=== PATIENT | female | born 1990 | race Caucasian/White ===

== ENCOUNTER → 2021-07-09 12:44 | Outpatient (CLI) | payer SELFPAY ==
--- NOTE | 2021-07-09 12:52 | US_ITS ---
FINAL REPORT CLINICAL HISTORY: ANATOMY SCAN-- seen by supervisor dock FINDINGS: There is a single live intrauterine gestation. Presentation is breech. The cervix is closed and measures 4.1 cm. Placenta is posterior, grade 1. Fetus is active with a heart rate of 142 beats per minute. Three-vessel cord with satisfactory umbilical cord insertion. Four-chamber heart is noted. brain and ventricles are unremarkable. Chest and diaphragm are unremarkable. ABDOMEN: Both kidneys are unremarkable. Stomach is unremarkable. SPINE: No anomalies identified. Both arms and legs noted. AMNIOTIC FLUID: Appropriate amount. MEASUREMENTS: ULTRASOUND AGE: 21 weeks 4 days. GESTATION AGE: 21 weeks 0 days. ESTIMATED WEIGHT: 427 g BPD: 5.11 cm corresponding with 21 weeks 4 days. OFD: 6.86 cm corresponding with 22 weeks 3 days. HC: 19 cm corresponding with 21 weeks 2 days. AC: 16.46 cm corresponding with 21 weeks 4 days. FL: 3.62 cm corresponding with 21 weeks 4 days. CEREBELLUM: 2.06 cm corresponding with 20 weeks 6 days. HUMERUS: 3.49 cm corresponding with 22 weeks 0 days. HC/AC: 1.15 CI: 74% FL/BPD: 71% FL/AC: 22% IMPRESSION: Single living IUP with an ultrasound age of 21 weeks 4 days. Reviewed, Interpreted and Dictated by Jitendra Singh III, MD Transcribed by Sveta Rubio Authenticated by Jitendra Singh III, MD on 07/09/2021 02:30:51 PM [facility]
== END ==
PROVIDERS: Referring Provider Midwife; Visit Provider Midwife
DX: Z34.92 Encounter for supervision of normal pregnancy, unspecified, second trimester (principal); Z36.0 Encounter for antenatal screening for chromosomal anomalies
CPT/HCPCS: 76811

== ENCOUNTER 2024-05-30 10:49 | Inpatient (IN) | payer BC, SELFPAY ==
[2024-05-30] VITALS (11 sets, daily range): BP systolic 98–121; BP diastolic 43–68; PULSE 90–118; RESP 16–20; TEMP 36.7–38.3; O2SAT 97–100; BMI 21.1
--- NOTE | 2024-05-30 10:57 | ED_ITS ---
Discharge Plan Disposition Chief Complaint: Fever Discharge ED Provider: Ryan Blanco General Adult HPI General Chief complaint: Fever Stated complaint: fever, cramping, 11 weeks Time Seen by Provider: 05/30/24 10:57 History of Present Illness HPI narrative: Patient presents for evaluation of fever, as well as reported clear vaginal discharge in the setting of approximately 11 weeks , last menstrual period early March. She states she is G6. No known sick contacts, associated symptoms include cramping, nausea, she has not had IUP confirmed at this time. No dysuria, no urinary frequency. Please note that above description of symptoms, in this electronic medical record under categorization of recalled from ER triage doctor by RN are reflective of an initial nursing assessment, however, is not reflective of my full history and physical exam that was personally taken and clarified. Consequentially, this preceding description of symptoms, which may include the patient's categorized chief complaint in the EMR, do not reflect my personal clinical impression, and the ultimate description of history of present illness and patient stated complaints should be deferred to this section of the note. Unless stated otherwise or congruent with this section of the note, additional signs, symptoms, or incongruence should be interpreted as inaccurate with my clinical impression. Related Data Allergies Allergy/AdvReac Type Severity Reaction Status Date / Time No Known Allergies Allergy Verified 05/30/24 11:43 [facility] Disclaimer: The information contained in this section may have been updated after the patient was seen, as this information can be updated by other users. Social History Smoking Status: Never smoker alcohol intake: former current occupational status: other Travel in the last 8 weeks: None ROS Obtained: Yes other As per HPI Physical Exam General General appearance: alert and in no apparent distress Head Head exam: atraumatic and normocephalic Eye Eye exam: Present normal appearance Neck Neck exam: Present normal inspection Chest Chest inspection: Present normal inspection and symmetric chest wall rise Respiratory Respiratory exam: Present normal lung sounds bilaterally; Absent respiratory distress Cardiovascular Cardiovascular exam: Present regular rate and normal rhythm Abdominal Exam Abdominal exam: Present soft Neurological Exam Neurological exam: Present alert and oriented X3 Psychiatric Psychiatric exam: Present normal affect and normal mood Skin Skin exam: Present warm and dry Other Other exam information: Supervised speculum exam with arielle pus at cervical os Medical Decision Making Medical Records Medical records reviewed: Yes I reviewed the patient's medical records. Screening: Per USPSTF and CDC recommendations, given the prevalence of disease in our region, it is our hospital?s policy to screen for HIV and viral Hepatitis for all patients aged 18 and over and those with ongoing risk factors. Guilherme Inquiry Pt receiving controlled substance: No Vital Signs: 05/30/24 11:35 05/30/24 12:02 05/30/24 14:03 Temperature 101 F H Temperature Source Oral Oral Pulse Rate 118 H Pulse Rate [Left] 118 H Respiratory Rate 18 Blood Pressure 120/63 Blood Pressure [Right Arm] 121/63 Blood Pressure Mean [Right Arm] 82 Blood Pressure Source [Right Arm] Automatic Cuff Blood Pressure Position [Right Arm] Sitting 02 Sat by Pulse Oximetry 100 98 Oxygen Delivery Method Room Air Room Air 05/30/24 14:30 05/30/24 14:49 Temperature Temperature Source Pulse Rate 110 H 112 H Pulse Rate [Left] Respiratory Rate Blood Pressure 119/64 121/68 Blood Pressure [Right Arm] Blood Pressure Mean [Right Arm] Blood Pressure Source [Right Arm] Blood Pressure Position [Right Arm] 02 Sat by Pulse Oximetry 97 98 Oxygen Delivery Method Room Air Room Air Lab Data Lab Results 05/30/24 11:38: SARS-CoV-2 (PCR) Not detected, Influenza A Untype (PCR) Not detected, Influenza Type B (PCR) Not detected 05/30/24 11:40: Urine Color Yellow, Urine Appearance Clear, Urine pH 6.5, Ur Specific [place] >= 1.030, Urine Protein 2+ A, Urine Glucose (UA) Negative, Urine Ketones 1+, Urine Blood 1+ A, Urine Nitrate Negative, Urine Bilirubin Negative, Urine Urobilinogen 0.2, Ur Leukocyte Esterase Negative, Urine RBC Occasional, Urine WBC Occasional, Ur Squamous Epith Cells Occasional, Urine Bacteria Trace 05/30/24 Unknown 05/30/24 Unknown Orders (Tests/Meds): ED MEDICATIONS Generic Name Dose Route Start Last Admin Trade Name Freq PRN Reason Stop Dose Admin Gentamicin Sulfate 300 mg/ 107.5 mls @ 100 mls/hr 05/30/24 15:30 Sodium Chloride IV 05/30/24 16:34 ONCE ONE Discontinued Medications Generic Name Dose Route Start Last Admin Trade Name Freq PRN Reason Stop Dose Admin Ampicillin Sodium 2 gm/ Sodium 100 mls @ 200 mls/hr 05/30/24 15:02 05/30/24 15:41 Chloride IV 05/30/24 15:31 200 mls/hr ONCE ONE Administration ORDERS Category Date Time Status POCUS Point of Care (ER Only) Stat Exams 05/30/24 11:57 Completed Beta HCG, Quant [HCG,Quantitative] Stat Lab 05/30/24 Completed CBC w/Auto Diff [Complete Blood Count Auto Diff] Stat Lab 05/30/24 Completed CMP [Comprehensive Metabolic Panel] Stat Lab 05/30/24 Completed Chlam/Gono/Trich/Myco, JUAN, Ur Stat Lab 05/30/24 11:40 Received Lipase Stat Lab 05/30/24 Completed RPR W/RFX Titers Stat Lab 05/30/24 Completed Rapid PCR Covid and Flu A/B Stat Lab 05/30/24 11:38 Completed Urinalysis and Microscopic Stat Lab 05/30/24 11:40 Completed Blood Culture Stat Micro 05/30/24 15:25 Received Genital Culture and Gram Stain Stat Micro 05/30/24 14:46 Received Urine Culture Stat Micro 05/30/24 11:06 Received US OB transvaginal Stat Ultrasound 05/30/24 12:05 Completed Medical Decision Narrative: Patient with history and exam per above presenting for evaluation of fever in the setting of Diagnoses considered include chorioamnionitis, ectopic , premature rupture of membranes, viral illness, among others ED workup and treatment included: ED MEDICATIONS Generic Name Dose Route Start Last Admin Trade Name Freq PRN Reason Stop Dose Admin Gentamicin Sulfate 300 mg/ 107.5 mls @ 100 mls/hr 05/30/24 15:30 Sodium Chloride IV 05/30/24 16:34 ONCE ONE Discontinued Medications Generic Name Dose Route Start Last Admin Trade Name Freq PRN Reason Stop Dose Admin Ampicillin Sodium 2 gm/ Sodium 100 mls @ 200 mls/hr 05/30/24 15:02 05/30/24 15:41 Chloride IV 05/30/24 15:31 200 mls/hr ONCE ONE Administration ORDERS Category Date Time Status POCUS Point of Care (ER Only) Stat Exams 05/30/24 11:57 Completed Beta HCG, Quant [HCG,Quantitative] Stat Lab 05/30/24 Completed CBC w/Auto Diff [Complete Blood Count Auto Diff] Stat Lab 05/30/24 Completed CMP [Comprehensive Metabolic Panel] Stat Lab 05/30/24 Completed Chlam/Gono/Trich/Myco, JUAN, Ur Stat Lab 05/30/24 11:40 Received Lipase Stat Lab 05/30/24 Completed RPR W/RFX Titers Stat Lab 05/30/24 Completed Rapid PCR Covid and Flu A/B Stat Lab 05/30/24 11:38 Completed Urinalysis and Microscopic Stat Lab 05/30/24 11:40 Completed Blood Culture Stat Micro 05/30/24 15:25 Received Genital Culture and Gram Stain Stat Micro 05/30/24 14:46 Received Urine Culture Stat Micro 05/30/24 11:06 Received US OB transvaginal Stat Ultrasound 05/30/24 12:05 Completed Labs were independently interpreted by me, significant for no leukocytosis, [id number] AmniSure negative for amniotic fluid Imaging was independently visualized and interpreted by me, significant for tachycardia, oligohydramnios Please refer to radiology report for full details. Clinical picture at this time concerning for chorioamnionitis, thus will initiate ampicillin and gentamicin, case was discussed with OB physician on-call who will admit patient to their service. Critical Care Critical Care Time Critical Care Time: No
--- NOTE | 2024-05-30 11:38 | PC.NURSE ---
swab sent to lab; pt ambulatory to restroom
--- NOTE | 2024-05-30 11:41 | PC.NURSE ---
UA sent to lab. Hooked back up to the monitor, no other needs at this time. Call quiroga within reach
[2024-05-30 11:44] LABS: Basophils % 0.1 % (0.1-2.0); Hematocrit 27.6 % (37.0-47.0); Lymphocytes # 0.2 K/mm3 (0.7-4.5); Lymphocytes % 2.9 % (10-50); Mean Corpuscular HGB Conc 32.6 g/dL (31.8-35.4); Mean Corpuscular Hemoglobin 23.6 pg (27.0-31.2); Mean Corpuscular Volume 72.3 fl (81-99); Mean Platelet Volume 10.9 fl (7.4-10.4); Monocytes # 0.2 K/mm3 (0.1-1.0); Monocytes % 2.7 % (1.7-9.3); Neutrophils # 7.8 K/mm3 (1.8-7.8); Neutrophils % 93.7 % (37.0-80.0); Platelet Count 180 K/mm3 (142-424); Red Blood Count 3.82 M/mm3 (4.20-5.40); Red Cell Distribution Width 20.2 % (11.5-17.5); White Blood Count 8.3 K/mm3 (4.8-10.8)
[2024-05-30 11:44] LABS: Coronavirus 19, PCR Not Detected (NotDetected); Influenza A, PCR Not Detected (NotDetected); Influenza B, PCR Not Detected (NotDetected)
[2024-05-30 11:44] LABS: Microscopic, Urine URINE MICROSCOPIC (MICROSCOPIC)
[2024-05-30 11:45] LABS: Appearance,Urine CLEAR (Clear); Bilirubin,Urine Negative (Negative); Blood, Urine 1+ (Negative); Color,Urine YELLOW (Yellow); Glucose,Urine (UA) Negative (Negative); Ketones,Urine 1+ (Negative); Leukocyte Esterase,Urine Negative (Negative); Nitrate,Urine Negative (Negative); PH,Urine 6.5 (5.0-8.5); Protein,Urine 2+ (Negative); Specific Gravity, Urine >= 1.030 (1.005-1.030); Urobilinogen,Urine 0.2 EU/dl (0.2)
[2024-05-30 11:49] LABS: Chloride 99 mmol/L (98-107); Sodium 133 mmol/L (136-145)
[2024-05-30 11:50] LABS: MANUAL DIFFERENTIAL MANUAL DIFFERENTIAL (MANUAL DIFF); Potassium 3.7 mmoL/L (3.5-5.1)
[2024-05-30 11:52] LABS: Alanine Aminotransferase 34 U/L (12-78); Albumin/Globulin Ratio 1.4 (1.1-1.8); Alkaline Phosphatase 70 U/L (38-126); Anion Gap 13.7 mEq/L (5-15); Aspartate Amino Transferase 41 U/L (14-36); Bilirubin,Total 0.3 mg/dl (0.2-1.3); Blood Urea Nitrogen 15 mg/dl (7-17); Carbon Dioxide 24 mmol/L (22.0-30.0); Creatinine Clearance Estimated 107 mL/min (50-200); Estimated Glomerular Filt Rate 115 ml/min (>60); GFR (African American) 139 ML/MIN (>60); Globulin 2.8 g/dL (1.3-3.2); Lipase 42 U/L (23-300); Total Protein,Serum 6.8 g/dl (6.3-8.2)
[2024-05-30 11:53] LABS: Calcium 9.1 mg/dl (8.4-10.2); Glucose 132 mg/dl (74-100)
[2024-05-30 11:56] LABS: Bacteria,Urine Trace /lpf; RBC,Urine Occasional #/hpf (0-3); Squamous Epithelial Cell,Urine Occasional #/hpf (0-5); WBC,Urine Occasional #/hpf (0-3)
--- NOTE | 2024-05-30 12:05 | US_ITS ---
PROCEDURE INFORMATION: Exam: US , Transvaginal Exam date and time: 05/30/2024 12:09 PM Age: 33 years old Clinical indication: Pain; Other: Cramping and bleeding; Gestational age or lmp: 11w5d; ; Additional info: Fever, , cramping LABS AND CLINICAL REPORTS: Gestational age (Established): 11 w 4 d Estimated due date (Established): 12/15/2024 TECHNIQUE: Imaging protocol: Real-time transvaginal obstetrical ultrasound of the maternal pelvis with image documentation. Transvaginal imaging was used for better evaluation of the fetus, adnexa, and/or cervix. COMPARISON: US OB /MATERNAL DETAIL 07/09/2021 1:02 PM FINDINGS: Gestation: There is a single live intrauterine gestation. heart rate: 183 bpm. Amniotic fluid (Qualitative): There is scant amniotic fluid noted. BIOMETRY: Gestational age (AUA): 11 w 5 d. Estimated due date (AUA): 12/14/2024. [place] rump length (CRL): 48.81 mm. EGA (CRL) is 11 w 4 d MATERNAL: Right ovary/adnexa: The right ovary is not identified transvaginally. Left ovary/adnexa: The left ovary measures 3.1 x 1.7 x 1.8 cm. Arterial waveforms are demonstrated within the left ovary at the time of the study on spectral pulse-wave duplex interrogation. Intraperitoneal space: There is no free pelvic fluid. IMPRESSION: Single live intrauterine gestation as described. Very low amniotic fluid. THIS REPORT CONTAINS FINDINGS THAT MAY BE CRITICAL TO PATIENT CARE. The findings were verbally communicated via telephone conference with Ryan Blanco at 1:04 PM EST on 05/30/2024. The findings were acknowledged and understood.
[2024-05-30 12:17] LABS: Hypochromasia 1+; Lymphocytes % 7 % (10-50); Monocytes % 1 % (2-9); Neutrophils % 92 % (42-76); Platelet Estimate Normal; Total Cells Counted 100
--- NOTE | 2024-05-30 12:21 | PC.NURSE ---
PT IS GONE TO ULTRASOUND
--- NOTE | 2024-05-30 12:40 | PC.NURSE ---
Pt returns to room from US, prelim verbally given to
--- NOTE | 2024-05-30 13:03 | PC.NURSE ---
Dr. Blanco is speaking with OB customer relationship specialist
[2024-05-30 13:17] LABS: HCG,Quantitative 93302 mIU/ml (0-5.42)
[2024-05-30 14:32] LABS: RPR W/RFX Titers Nonreactive (Nonreactive)
--- NOTE | 2024-05-30 15:28 | PC.NURSE ---
I notified HS of the need for a bed to admit to OB per
[2024-05-30] MEDS: AMPICILLIN SODIUM 2 GM in 0.9 % SODIUM CHLORIDE 100 ML IV ×2 (15:41→22:12)
[2024-05-30] MEDS: LACTATED RINGERS 760 ML IV ×2 (16:06→16:30)
[2024-05-30] MEDS: ACETAMINOPHEN 1,000MG/100ML VIAL 1000 MG IV (16:06)
[2024-05-30] MEDS: GENTAMICIN SULFATE 300 MG in 0.9 % SODIUM CHLORIDE 100 ML 100 MG IV (16:30)
--- NOTE | 2024-05-30 17:17 | P.HP_ITS ---
History of Present Illness *Admission Date: 05/30/24 *Reason for visit:: Fever, leakage of fluid in early *History of present illness: Mrs Halley Venegas is a 33 yo at 11w5d who presented to [facility] ED with complaint of fever/chills, leakage of fluid. She reports fevers started Monday evening. She admits she felt achey, fluish. Fevers continued yesterday and today. Yesterday her temperature reached 104 F. She reports watery vaginal discharge/leakage of fluid has kind of been her whole . Discharge/leakage is more with activity and less with rest. She has light intermittent bleeding which she reports has always been present for a while. She believes she has a fibroid uterus but is not confirmed. She denies pelvic cramping/pain. History of x 5, home births. Her care has been with a resident physician in radiology. She had a visit in January 2024 and a pap smear and cultures were performed. She states pap smear was negative. She denies past medical history. Prior pregnancies and deliveries were uncomplicated. While in the ED her temperature was 101 F. ED physician performed bedside ultrasound and noted scant amniotic fluid as well as tachycardia, 211 bpm. Amnisure was negative. Formal ultrasound was ordered which demonstrated SIUP at 11w4d, FHR 183 bpm, scant fluid. [facility] Disclaimer: The information contained in this section may have been updated after the patient was seen, as this information can be updated by other users. Medical History (Updated 05/30/24 @ 17:46 by Berta Ledezma DO) Lesion of cervix Vaginal discharge during in first trimester Oligohydramnios in first trimester Sepsis Social History (Updated 05/30/24 @ 15:46 by Ryan Blanco MD) Smoking Status: Never smoker alcohol intake: former current occupational status: other Travel in the last 8 weeks: None Have you lived/traveled outside [place] in past 30 days?: No Contact w/someone who lives/traveled outside US past 30 days?: No Exposure to someone with infectious disease in past 14 days?: No Do you have a fever (greater than 100.4 F or 38 C)?: Yes Have you tested positive for COVID-19: No Exposed to someone with COVID-19 in past 14 days?: No Do you have a sore throat?: No Do you have a cough?: No Do you have any weakness?: Yes Do you have any diarrhea?: No Are you experiencing any unusual bleeding?: No Do you have any muscle aches/pain?: No Do you have any abdominal pain?: No Are you experiencing loss of taste or smell?: No Review of Systems Review of Systems Review of systems:: pertinent systems reviewed and negative unless documented below Constitutional Constitutional: Reports body ache(s), Reports chills and Reports fever(s) Meds Home Medications and Allergies New Prescriptions to Start Prescriptions: Allergies Allergy/AdvReac Type Severity Reaction Status Date / Time No Known Allergies Allergy Verified 05/30/24 11:43 Exam Data for Last 24 hours Vital signs and Labs for Last 24 Hours: Temp Pulse Resp BP Pulse Ox O2 Del Method 100.8 F H 90 16 105/60 L 100 Room Air 05/30/24 16:09 05/30/24 17:05 05/30/24 17:05 05/30/24 17:05 05/30/24 17:05 05/30/24 17:05 Laboratory Results - last 24 hr 05/30/24 11:38: SARS-CoV-2 (PCR) Not detected, Influenza A Untype (PCR) Not detected, Influenza Type B (PCR) Not detected 05/30/24 11:40: Urine Color Yellow, Urine Appearance Clear, Urine pH 6.5, Ur Specific [place] >= 1.030, Urine Protein 2+ A, Urine Glucose (UA) Negative, Urine Ketones 1+, Urine Blood 1+ A, Urine Nitrate Negative, Urine Bilirubin Negative, Urine Urobilinogen 0.2, Ur Leukocyte Esterase Negative, Urine RBC Oc casional, Urine WBC Occasional, Ur Squamous Epith Cells Occasional, Urine Bacteria Trace 05/30/24 : WBC 8.3, RBC 3.82 L, Hgb 9.0 L, Hct 27.6 L, MCV 72.3 L, MCH 23.6 L, MCHC 32.6, RDW 20.2 H, Plt Count 180, MPV 10.9 H, Neut % (Auto) 93.7 H, Lymph % (Auto) 2.9 L, Stewart % (Auto) 2.7, Eos % (Auto) 0.0 L, Baso % (Auto) 0.1, Neut # (Auto) 7.8, Lymph # (Auto) 0.2 L, Stewart # (Auto) 0.2, Eos # (Auto) 0.0, Baso # (Auto) 0.0, Total Counted 100, Neutrophils % (Manual) 92 H, Lymphocytes % (Manual) 7 L, Monocytes % (Manual) 1 L, Platelet Estimate Normal, Hypochromasia 1+, Sodium 133 L, Potassium 3.7, Chloride 99, Carbon Dioxide 24, Anion Gap 13.7, BUN 15, Creatinine 0.60, Estimated Creat Clear 107, Estimated GFR 115, Est GFR ( Amer) 139, Glucose 132 H, Calcium 9.1, Total Bilirubin 0.3, AST 41 H, ALT 34, Alkaline Phosphatase 70, Total Protein 6.8, Albumin 4.0, Globulin 2.8, Albumin/Globulin Ratio 1.4, Lipase 42, HCG, Quant 82544 H, RPR w/Rflx to Titer Nonreactive I & O for Last 24 hours: Intake & Output 05/27/24 05/28/24 05/29/24 05/30/24 23:59 23:59 23:59 23:59 Weight 112 lb Microbiology Reports for the Last 24 Hours: Microbiology 05/30/24 14:46 Vaginal Gram Stain - Final 05/30/24 14:56 Vaginal Wet Prep - Final Constitutional Constitutional: cooperative Comments: + appears to not feel well *Routine HEENT Exam Head: Present normocephalic and atraumatic Eye: Absent conjunctivae pink ENT: Present mucous membranes moist *Routine Neck Exam Neck: Present full ROM *Routine Respiratory Exam Respiratory: Present CTA bilaterally and normal respiratory effort *Routine Cardiovascular Exam Cardiovascular: Present tachycardia *Routine Abdominal Exam Abdominal: Present soft (Gravid); Absent tenderness *Routine Rectal Exam Rectal:: deferred *Routine Genitalia Exam Genitalia:: other Comment:: Normal external appearance; Speculum exam + copious amount of hunt/brown/red fluid in the vaginal vault and obscurring part of the cervix. Attempted to remove fluid with swabs without much success. At 7 o'clock to 9 o'clock there appears to be a yellowish colored raised plaque on the cervix that did not move with swab. No cervical motion tenderness. No odor appreciated. *Routine Extremities Exam Extremities: Present full ROM; Absent edema or calf tenderness *Routine Neurological Exam Neurological: Present alert, moving all extremities and normal speech Routine Psychiatric Exam Psychiatric: Present normal affect and cooperative Assessment and Plan *Assessment and plan (1) Sepsis: Status: Acute Qualifiers: Sepsis acute organ dysfunction status: unspecified Sepsis type: sepsis due to unspecified organism Qualified Code(s): A41.9 - Sepsis, unspecified organism Category: Medical Code(s): A41.9 - Sepsis, unspecified organism (2) Oligohydramnios in first trimester: Status: Acute Qualifiers: Fetus number: single or unspecified fetus Qualified Code(s): O41.01X0 - Oligohydramnios, first trimester, not applicable or unspecified Category: Medical Code(s): O41.01X0 - Oligohydramnios, first trimester, not applicable or unspecified (3) Vaginal discharge during in first trimester: Status: Acute Category: Medical Code(s): O26.891 - Other specified related conditions, first trimester; N89.8 - Other specified noninflammatory disorders of vagina (4) Lesion of cervix: Status: Acute Category: Medical Code(s): N88.9 - Noninflammatory disorder of cervix uteri, unspecified Plan Admit to [facility] L&D Sepsis protocol - IV fluids per protocol, vitals per protocol Ampicillin 2 gm q 6 hours, Gentamicin 5 mg/kg daily FHT q shift Cultures pending Repeat labs in the AM Repeat ultrasound in the AM Close monitoring Regular diet Activity as tolerated Tylenol 1000 q 6 hours PRN fever/pain
[2024-05-30 17:22] LABS: Lactic Acid 1.5 mmol/L (0.7-2.1)
[2024-05-31] VITALS (39 sets, daily range): BP systolic 83–103; BP diastolic 35–76; PULSE 80–122; RESP 16–20; TEMP 36.7–39.4; O2SAT 96–100
--- NOTE | 2024-05-31 | US_ITS ---
Ultrasound Sonograher: PROCEDURE: US PELVIC CLINICAL INDICATION: RPOC COMPARISON: US US OB TRANSVAGINAL from 05/30/2024 US US OB TRANSVAGINAL from 05/31/2024 FINDINGS: Real time transabdominal sonographic images of the pelvis were obtained during a D&C. UTERUS: Anteverted. Suction evacuation of the entire uterine contents was performed under ultrasound guidance. The endometrial contents were completely evacuated. Ovaries were not evaluated. IMPRESSION: 1. Suction evacuation of the endometrial contents. 2. The uterus was completely evacuated. Dictated by: Louis Melgoza MD 05/31/2024 15:55 Louis Melgoza MD in OV 05/31/2024 15:55
[2024-05-31] MEDS: LACTATED RINGERS 1000ML 1,000 ML 75 ML IV (01:23)
[2024-05-31] MEDS: AMPICILLIN SODIUM 2 GM in 0.9 % SODIUM CHLORIDE 100 ML IV (03:39)
[2024-05-31] MEDS: ACETAMINOPHEN 500MG TAB 1000 MG PO ×2 (04:53→15:47)
[2024-05-31] MEDS: ONDANSETRON 4MG/2ML VIAL 4 MG IV ×2 (05:45→09:26)
[2024-05-31 06:00] LABS: Basophils % 0.5 % (0.1-2.0); Hematocrit 21.2 % (37.0-47.0); Lymphocytes # 0.2 K/mm3 (0.7-4.5); Mean Corpuscular HGB Conc 32.1 g/dL (31.8-35.4); Mean Corpuscular Hemoglobin 23.2 pg (27.0-31.2); Mean Corpuscular Volume 72.4 fl (81-99); Mean Platelet Volume 11.4 fl (7.4-10.4); Monocytes # 0.1 K/mm3 (0.1-1.0); Monocytes % 2.5 % (1.7-9.3); Neutrophils # 1.7 K/mm3 (1.8-7.8); Platelet Count 144 K/mm3 (142-424); Red Blood Count 2.93 M/mm3 (4.20-5.40)
[2024-05-31] MEDS: IBUPROFEN 400 MG TABLET PO (06:00)
[2024-05-31 06:11] LABS: Alanine Aminotransferase 26 U/L (12-78); Albumin Level 2.7 g/dl (3.5-5.0); Albumin/Globulin Ratio 1.1 (1.1-1.8); Alkaline Phosphatase 60 U/L (38-126); Anion Gap 10.3 mEq/L (5-15); Aspartate Amino Transferase 30 U/L (14-36); Blood Urea Nitrogen 11 mg/dl (7-17); Calcium 7.8 mg/dl (8.4-10.2); Carbon Dioxide 20 mmol/L (22.0-30.0); Chloride 107 mmol/L (98-107); Creatinine Clearance Estimated 128 mL/min (50-200); Estimated Glomerular Filt Rate 142 ml/min (>60); GFR (African American) 172 ML/MIN (>60); Globulin 2.4 g/dL (1.3-3.2); Glucose 102 mg/dl (74-100); Potassium 3.3 mmoL/L (3.5-5.1); Sodium 134 mmol/L (136-145); Total Protein,Serum 5.1 g/dl (6.3-8.2)
[2024-05-31 06:13] LABS: Hemoglobin 6.8 g/dL (12.2-16.2)
--- NOTE | 2024-05-31 06:13 | PC.NURSE ---
Ijeoma in lab notified me of critical hemoglobin level of 6.8.
[2024-05-31 06:16] LABS: Bilirubin,Total < 0.1 mg/dl (0.2-1.3)
--- NOTE | 2024-05-31 06:38 | PC.NURSE ---
Hospitalist on unit at this time, report given, orders for 1000ml bolus at this time, and start 100ml/hr after bolus, new lactate level stat. orders verified and read back
[2024-05-31] MEDS: LACTATED RINGERS 999 ML IV (06:45)
--- NOTE | 2024-05-31 07:00 | US_ITS ---
PROCEDURE: US OB TRANSVAGINAL CLINICAL INDICATION: Possible LOF COMPARISON: US US OB TRANSVAGINAL from 05/30/2024 FINDINGS: Transvaginal sonographic images of the pelvis were obtained. From her last menstrual period she is 11weeks 5days. There appears to be tissue left within the uterine cavity but no heart rate activity is seen today. The right ovary is seen and appears normal. The left ovary is seen and appears normal. There is no fluid in the cul-de-sac. IMPRESSION: 1. There is no heart rate activity today. It is difficult to determine whether there is a fetus or just residual tissue within the uterus. A fetus was not clearly identified. There is no amniotic sac present today. 2. Both ovaries are seen and appear normal. 3. No fluid in the cul-de-sac. Dictated by: Louis Melgoza MD 05/31/2024 10:03 Louis Melgoza MD in OV 05/31/2024 10:03
--- NOTE | 2024-05-31 07:23 | PC.NURSE ---
pt going to radiology for u/s at this time.
[2024-05-31 07:43] LABS: Adenovirus,PCR Not Detected (NotDetected); Bordetella Pertussis Not Detected (NotDetected); Chlamydophila Pneumoniae, PCR Not Detected (NotDetected); Coronavirus 19, PCR Not Detected (NotDetected); Coronavirus 229E Not Detected (NotDetected); Coronavirus NL63 Not Detected (NotDetected); Coronavirus OC43 Not Detected (NotDetected); Coronovirus HKU1,PCR Not Detected (NotDetected); Human Metapneumovirus Not Detected (NotDetected); Influenza A, PCR Not Detected (NotDetected); Influenza AH1, 2009 Not Detected (NotDetected); Influenza AH1, PCR Not Detected (NotDetected); Influenza AH3,PCR Not Detected (NotDetected); Influenza B, PCR Not Detected (NotDetected); Mycoplasma Pneumoniae, PCR Not Detected (NotDetected); Parainfluenza 1, PCR Not Detected (NotDetected); Parainfluenza 2, PCR Not Detected (NotDetected); Parainfluenza 3, PCR Not Detected (NotDetected); Parainfluenza 4, PCR Not Detected (NotDetected); Respiratory Syncytial Virus Not Detected (NotDetected); Rhinovirus/Enterovirus Not Detected (NotDetected)
--- NOTE | 2024-05-31 07:44 | PC.NURSE ---
pt returned fromn radiology at this time. call light w/i reach.
--- NOTE | 2024-05-31 08:11 | PC.NURSE ---
Dr. Steve to bedside to see patient.
--- NOTE | 2024-05-31 08:13 | P.CONPHA_ITS ---
Pharmacy Consult Date: 05/31/24 Time: 08:13 Referring provider: DR. LEDEZMA Reason for Consult:: GENTAMICIN Allergies Allergy/AdvReac Type Severity Reaction Status Date / Time No Known Allergies Allergy Verified 05/30/24 11:43 New Prescriptions to Start Prescriptions: Height: 1.55 m Weight: 50.802 kg Laboratory Results:: Laboratory Results - last 24 hr 05/30/24 11:38: SARS-CoV-2 (PCR) Not detected, Influenza A Untype (PCR) Not detected, Influenza Type B (PCR) Not detected 05/30/24 11:40: Urine Color Yellow, Urine Appearance Clear, Urine pH 6.5, Ur Specific [place] >= 1.030, Urine Protein 2+ A, Urine Glucose (UA) Negative, Urine Ketones 1+, Urine Blood 1+ A, Urine Nitrate Negative, Urine Bilirubin Negative, Urine Urobilinogen 0.2, Ur Leukocyte Esterase Negative, Urine RBC Occasional, Urine WBC Occasional, Ur Squamous Epith Cells Occasional, Urine Bacteria Trace 05/30/24 16:43: Lactate 1.5 05/30/24 : WBC 8.3, RBC 3.82 L, Hgb 9.0 L, Hct 27.6 L, MCV 72.3 L, MCH 23.6 L, MCHC 32.6, RDW 20.2 H, Plt Count 180, MPV 10.9 H, Neut % (Auto) 93.7 H, Lymph % (Auto) 2.9 L, [place] % (Auto) 2.7, Eos % (Auto) 0.0 L, Baso % (Auto) 0.1, Neut # (Auto) 7.8, Lymph # (Auto) 0.2 L, [place] # (Auto) 0.2, Eos # (Auto) 0.0, Baso # (Auto) 0.0, Total Counted 100, Neutrophils % (Manual) 92 H, Lymphocytes % (Manual) 7 L, Monocytes % (Manual) 1 L, Platelet Estimate Normal, Hypochromasia 1+, Sodium 133 L, Potassium 3.7, Chloride 99, Carbon Dioxide 24, Anion Gap 13.7, BUN 15, Creatinine 0.60, Estimated Creat Clear 107, Estimated GFR 115, Est GFR ( Amer) 139, Glucose 132 H, Calcium 9.1, Total Bilirubin 0.3, AST 41 H, ALT 34, Alkaline Phosphatase 70, Total Protein 6.8, Albumin 4.0, Globulin 2.8, Albumin/Globulin Ratio 1.4, Lipase 42, HCG, Quant [id number] H, RPR w/Rflx to Titer Nonreactive 05/31/24 05:46: WBC 2.0 L D, RBC 2.93 L, Hgb 6.8 L* D, Hct 21.2 L, MCV 72.4 L, MCH 23.2 L, MCHC 32.1, RDW 20.0 H, Plt Count 144, MPV 11.4 H, Neut % (Auto) 83.0 H, Lymph % (Auto) 12.0, [place] % (Auto) 2.5, Eos % (Auto) 1.0, Baso % (Auto) 0.5, Neut # (Auto) 1.7 L, Lymph # (Auto) 0.2 L, [place] # (Auto) 0.1, Eos # (Auto) 0.0, Baso # (Auto) 0.0, Sodium 134 L, Potassium 3.3 L, Chloride 107, Carbon Dioxide 20 L, Anion Gap 10.3, BUN 11 D, Creatinine 0.50 L, Estimated Creat Clear 128, Estimated GFR 142, Est GFR ( Amer) 172 D, Glucose 102 H D, Calcium 7.8 L , Total Bilirubin < 0.1 L, AST 30 D, ALT 26, Alkaline Phosphatase 60, Total Protein 5.1 L, Albumin 2.7 L D, Globulin 2.4, Albumin/Globulin Ratio 1.1 05/31/24 06:40: Blood Type A Positive, Antibody Screen Negative, Crossmatch (AHG) See Detail Medical History: Medical History (Updated 05/30/24 @ 17:46 by Berta Ledezma DO) Lesion of cervix Vaginal discharge during in first trimester Oligohydramnios in first trimester Sepsis Assessment and Plan Assessment and plan all Dx Assessment and Plan for all problems:: Pharmacokinetic dosing service Objective: Patient: Floor: Age: 33 yo Serum creatinine: 0.5 mg/dL Height: 61.0 Inches Weight (kg): 50.8 Assessment: IBW (kg): 47.80 Dosing wt(kg): 47.8 Estimated Creatinine clearance (ml/min): 120.8 CRCL method: Cockcroft and Gault using ibw(default). Drug selected: Gentamicin Loading dose (mg): 0 Vd (liters): 14.3 (factor used: 0.3 L/kg) Humphrey (hr-1): 0.507 Half life (hrs): 1.37 Recommended dose: 240 mg Interval: 24 hrs Infusion time (hrs): 1 Predicted peak (mcg/mL): 13.2 Predicted trough (mcg/mL): 0.00 Recommendations: Give Gentamicin 240 mg q 24 hrs with an expected Cpeak of 13.2 mcg/ml and an expected Ctrough of 0.00 mcg/ml. PATIENT RECEIVED GENTAMICIN 300 MG X1 DOSE AT 1630 05/30/24 IN ER.
[2024-05-31] MEDS: LACTATED RINGERS 1000ML 1,000 ML 100 ML IV ×2 (08:53→11:31)
[2024-05-31] MEDS: DOXYCYCLINE HYCL 100 MG TABLET 200 MG PO (09:06)
--- NOTE | 2024-05-31 09:14 | PC.NURSE ---
Dr. Bal and Dr. Ledezma to bedside to see patient.
--- NOTE | 2024-05-31 09:17 | EXP.MED.CON ---
History of Present Illness *Admission Date: 05/30/24 *Reason for visit:: Fever, vaginal discharge *History of present illness: Mrs Halley Venegas is a 33 yo at 11w5d who presented to [facility] ED with complaint of fever/chills, leakage of fluid. She reports fevers started Monday evening. She admits she felt achey, fluish. Fevers continued yesterday and today. Yesterday her temperature reached 104 F. She reports watery vaginal discharge/leakage of fluid has kind of been her whole . Discharge/leakage is more with activity and less with rest. She has light intermittent bleeding which she reports has always been present for a while. She believes she has a fibroid uterus but is not confirmed. She denies pelvic cramping/pain. History of x 5, home births. 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 She had a visit in January 2024 and a pap smear and cultures were performed. She states pap smear was negative. She denies past medical history. Prior pregnancies and deliveries were uncomplicated. While in the ED her temperature was 101 F. ED physician performed bedside ultrasound and noted scant amniotic fluid as well as tachycardia, 211 bpm. Amnisure was negative. Formal ultrasound was ordered which demonstrated SIUP at 11w4d, FHR 183 bpm, scant fluid. [facility] Disclaimer: The information contained in this section may have been updated after the patient was seen, as this information can be updated by other users. Medical History (Updated 05/31/24 @ 09:17 by Murtaza Bal MD) Lesion of cervix Vaginal discharge during in first trimester Oligohydramnios in first trimester Sepsis Social History (Updated 05/30/24 @ 18:48 by Melvin Solomon RN) Smoking Status: Never smoker alcohol intake: former current occupational status: unemployed Travel in the last 8 weeks: None Have you lived/traveled outside US in past 30 days?: No Contact w/someone who lives/traveled outside US past 30 days?: No Exposure to someone with infectious disease in past 14 days?: No Do you have a fever (greater than 100.4 F or 38 C)?: No Have you tested positive for COVID-19: No Exposed to someone with COVID-19 in past 14 days?: No Do you have a sore throat?: No Do you have a cough?: No Do you have any weakness?: Yes Do you have any diarrhea?: No Are you experiencing any unusual bleeding?: No Do you have any muscle aches/pain?: No Do you have any abdominal pain?: No Are you experiencing loss of taste or smell?: No Exam Data for Last 24 hours Vital signs and Labs for Last 24 Hours: Temp Pulse Resp BP Pulse Ox O2 Del Method 98.9 F 112 H 16 95/54 L 100 Room Air 05/31/24 08:43 05/31/24 09:00 05/31/24 09:00 05/31/24 09:00 05/31/24 09:00 05/31/24 07:26 Laboratory Results - last 24 hr 05/30/24 11:38: SARS-CoV-2 (PCR) Not detected, Influenza A Untype (PCR) Not detected, Influenza Type B (PCR) Not detected 05/30/24 11:40: Urine Color Yellow, Urine Appearance Clear, Urine pH 6.5, Ur Specific [place] >= 1.030, Urine Protein 2+ A, Urine Glucose (UA) Negative, Urine Ketones 1+, Urine Blood 1+ A, Urine Nitrate Negative, Urine Bilirubin Negative, Urine Urobilinogen 0.2, Ur Leukocyte Esterase Negative, Urine RBC Occasional, Urine WBC Occasional, Ur Squamous Epith Cells Occasional, Urine Bacteria Trace 05/30/24 16:43: Lactate 1.5 05/30/24 : WBC 8.3, RBC 3.82 L, Hgb 9.0 L, Hct 27.6 L, MCV 72.3 L, MCH 23.6 L, MCHC 32.6, RDW 20.2 H, Plt Count 180, MPV 10.9 H, Neut % (Auto) 93.7 H, Lymph % (Auto) 2.9 L, [place] % (Auto) 2.7, Eos % (Auto) 0.0 L, Baso % (Auto) 0.1, Neut # (Auto) 7.8, Lymph # (Auto) 0.2 L, [place] # (Auto) 0.2, Eos # (Auto) 0.0, Baso # (Auto) 0.0, Total Counted 100, Neutrophils % (Manual) 92 H, Lymphocytes % (Manual) 7 L, Monocytes % (Manual) 1 L, Platelet Estimate Normal, Hypochromasia 1+, Sodium 133 L, Potassium 3.7, Chloride 99, Carbon Dioxide 24, Anion Gap 13.7, BUN 15, Creatinine 0.60, Estimated Creat Clear 107, Estimated GFR 115, Est GFR ( Amer) 139, Glucose 132 H, Calcium 9.1, Total Bilirubin 0.3, AST 41 H, ALT 34, Alkaline Phosphatase 70, Total Protein 6.8, Albumin 4.0, Globulin 2.8, Albumin/Globulin Ratio 1.4, Lipase 42, HCG, Quant [id number] H, RPR w/Rflx to Titer Nonreactive 05/31/24 05:46: WBC 2.0 L D, RBC 2.93 L, Hgb 6.8 L* D, Hct 21.2 L, MCV 72.4 L, MCH 23.2 L, MCHC 32.1, RDW 20.0 H, Plt Count 144, MPV 11.4 H, Neut % (Auto) 83.0 H, Lymph % (Auto) 12.0, [place] % (Auto) 2.5, Eos % (Auto) 1.0, Baso % (Auto) 0.5, Neut # (Auto) 1.7 L, Lymph # (Auto) 0.2 L, [place] # (Auto) 0.1, Eos # (Auto) 0.0, Baso # (Auto) 0.0, Sodium 134 L, Potassium 3.3 L, Chloride 107, Carbon Dioxide 20 L, Anion Gap 10.3, BUN 11 D, Creatinine 0.50 L, Estimated Creat Clear 128, Estimated GFR 142, Est GFR ( Amer) 172 D, Glucose 102 H D, Calcium 7.8 L, Total Bilirubin < 0.1 L, AST 30 D, ALT 26, Alkaline Phosphatase 60, Total Protein 5.1 L, Albumin 2.7 L D, Globulin 2.4, Albumin/Globulin Ratio 1.1, Blood Type Confirm A Positive 05/31/24 06:40: Blood Type A Positive, Antibody Screen Negative, Crossmatch (AHG) See Detail I & O for Last 24 hours: Intake & Output 05/28/24 05/29/24 05/30/24 05/31/24 23:59 23:59 23:59 23:59 Intake Total 0 / 0 Output Total 850 / 850 350 / 350 Balance -850 / -850 -350 / -350 Weight 50.802 kg 50.802 kg Microbiology Reports for the Last 24 Hours: Microbiology 05/30/24 14:46 Vaginal Gram Stain - Final 05/30/24 14:56 Vaginal Wet Prep - Final Meds Home Medications and Allergies New Prescriptions to Start Prescriptions: Allergies Allergy/AdvReac Type Severity Reaction Status Date / Time No Known Allergies Allergy Verified 05/30/24 11:43 Results Labs 05/31/24 05:46 05/31/24 05:46 Labs: Abnormal lab results 05/30/24 05/30/24 05/31/24 Range/Units 11:40 Unknown 05:46 WBC 2.0 L D (4.8-10.8) K/mm3 RBC 3.82 L 2.93 L (4.20-5.40) M/mm3 Hgb 9.0 L 6.8 L* D (12.2-16.2) g/dL Hct 27.6 L 21.2 L (37.0-47.0) % MCV 72.3 L 72.4 L (81-99) fl MCH 23.6 L 23.2 L (27.0-31.2) pg RDW 20.2 H 20.0 H (11.5-17.5) % MPV 10.9 H 11.4 H (7.4-10.4) fl Neut % (Auto) 93.7 H 83.0 H (37.0-80.0) % Lymph % (Auto) 2.9 L (10-50) % Eos % (Auto) 0.0 L (0.1-12.0) % Neut # (Auto) 1.7 L (1.8-7.8) K/mm3 Lymph # (Auto) 0.2 L 0.2 L (0.7-4.5) K/mm3 Neutrophils % (Manual) 92 H (42-76) % Lymphocytes % (Manual) 7 L (10-50) % Monocytes % (Manual) 1 L (2-9) % Sodium 133 L 134 L (136-145) mmol/L Potassium 3.3 L (3.5-5.1) mmoL/L Carbon Dioxide 20 L (22.0-30.0) mmol/L Creatinine 0.50 L (0.52-1.04) mg/dl Glucose 132 H 102 H D (74-100) mg/dl Calcium 7.8 L (8.4-10.2) mg/dl Total Bilirubin < 0.1 L (0.2-1.3) mg/dl AST 41 H (14-36) U/L Total Protein 5.1 L (6.3-8.2) g/dl Albumin 2.7 L D (3.5-5.0) g/dl HCG, Quant [id number] H (0-5.42) mIU/ml Urine Protein 2+ A (Negative) Urine Blood 1+ A (Negative) Crossmatch ([facility]) 05/31/24 Range/Units 06:40 WBC (4.8-10.8) K/mm3 RBC (4.20-5.40) M/mm3 Hgb (12.2-16.2) g/dL Hct (37.0-47.0) % MCV (81-99) fl MCH (27.0-31.2) pg RDW (11.5-17.5) % MPV (7.4-10.4) fl Neut % (Auto) (37.0-80.0) % Lymph % (Auto) (10-50) % Eos % (Auto) (0.1-12.0) % Neut # (Auto) (1.8-7.8) K/mm3 Lymph # (Auto) (0.7-4.5) K/mm3 Neutrophils % (Manual) (42-76) % Lymphocytes % (Manual) (10-50) % Monocytes % (Manual) (2-9) % Sodium (136-145) mmol/L Potassium (3.5-5.1) mmoL/L Carbon Dioxide (22.0-30.0) mmol/L Creatinine (0.52-1.04) mg/dl Glucose (74-100) mg/dl Calcium (8.4-10.2) mg/dl Total Bilirubin (0.2-1.3) mg/dl AST (14-36) U/L Total Protein (6.3-8.2) g/dl Albumin (3.5-5.0) g/dl HCG, Quant (0-5.42) mIU/ml Urine Protein (Negative) Urine Blood (Negative) Crossmatch ([facility]) See Detail H & H 05/30/24 05/31/24 Range/Units Unknown 05:46 Hgb 9.0 L 6.8 L* D (12.2-16.2) g/dL Hct 27.6 L 21.2 L (37.0-47.0) % All other labs normal. Assessment and Plan *Assessment and plan (1) Sepsis: Status: Acute Qualifiers: Sepsis type: sepsis due to unspecified organism Sepsis acute organ dysfunction status: unspecified Qualified Code(s): A41.9 - Sepsis, unspecified organism Category: Medical Code(s): A41.9 - Sepsis, unspecified organism (2) Vaginal discharge during in first trimester: Status: Acute Category: Medical Code(s): O26.891 - Other specified related conditions, first trimester; N89.8 - Other specified noninflammatory disorders of vagina (3) Blood loss anemia: Status: Acute Category: Medical Code(s): D50.0 - Iron deficiency anemia secondary to blood loss (chronic) Plan Meeting sepsis criteria with white count of 2, tachycardia with heart rate of 110, hypotensive, suspected infection intrauterine or vaginal. Broaden antibiotics to vancomycin and Zosyn as ultrasound shows no longer viable. Blood, vaginal, urine cultures pending. Respiratory swab broadened to full respiratory panel. Still pending at this time. Acute blood loss anemia: Agree with transfusion, receiving 2 units today. Transfusion threshold hemoglobin less than 7. Gynecology planning on taking patient for D&C today
--- NOTE | 2024-05-31 09:18 | EXP.MED.CON ---
History of Present Illness *Admission Date: 05/30/24 *Reason for visit:: fever, chills *History of present illness: Mrs Halley Venegas is a 33 yo at 11w5d who presented to [facility] ED with complaint of fever/chills, leakage of fluid. She reports fevers started Monday evening. She admits she felt achey, fluish. Fevers continued yesterday and today. Yesterday her temperature reached 104 F. She reports watery vaginal discharge/leakage of fluid has kind of been her whole . Discharge/leakage is more with activity and less with rest. She has light intermittent bleeding which she reports has always been present for a while. She believes she has a fibroid uterus but is not confirmed. She denies pelvic cramping/pain. History of x 5, home births. 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 She had a visit in January 2024 and a pap smear and cultures were performed. She states pap smear was negative. She denies past medical history. Prior pregnancies and deliveries were uncomplicated. While in the ED her temperature was 101 F. ED physician performed bedside ultrasound and noted scant amniotic fluid as well as tachycardia, 211 bpm. Amnisure was negative. Formal ultrasound was ordered which demonstrated SIUP at 11w4d, FHR 183 bpm, scant fluid. Medicine was consulted to assist with assessment and treatment of sepsis. Patient has received bolus. Will complete sepsis bolus with an additional liter. Worsening anemia this morning, receiving transfusion. [facility] Disclaimer: The information contained in this section may have been updated after the patient was seen, as this information can be updated by other users. Medical History Lesion of cervix Vaginal discharge during in first trimester Oligohydramnios in first trimester Sepsis Social History Smoking Status: Never smoker alcohol intake: former substance use type: denies use current occupational status: unemployed Travel in the last 8 weeks: None Review of Systems Review of Systems Review of systems (narrative): 14 point review of systems performed, pertinent positives and negatives as per HPI Exam Data for Last 24 hours Vital signs and Labs for Last 24 Hours: Temp Pulse Resp BP Pulse Ox O2 Del Method 98.9 F 112 H 16 95/54 L 100 Room Air 05/31/24 08:43 05/31/24 09:00 05/31/24 09:00 05/31/24 09:00 05/31/24 09:00 05/31/24 07:26 Laboratory Results - last 24 hr 05/30/24 11:38: SARS-CoV-2 (PCR) Not detected, Influenza A Untype (PCR) Not detected, Influenza Type B (PCR) Not detected 05/30/24 11:40: Urine Color Yellow, Urine Appearance Clear, Urine pH 6.5, Ur Specific [place] >= 1.030, Urine Protein 2+ A, Urine Glucose (UA) Negative, Urine Ketones 1+, Urine Blood 1+ A, Urine Nitrate Negative, Urine Bilirubin Negative, Urine Urobilinogen 0.2, Ur Leukocyte Esterase Negative, Urine RBC Occasional, Urine WBC Occasional, Ur Squamous Epith Cells Occasional, Urine Bacteria Trace 05/30/24 16:43: Lactate 1.5 05/30/24 : WBC 8.3, RBC 3.82 L, Hgb 9.0 L, Hct 27.6 L, MCV 72.3 L, MCH 23.6 L, MCHC 32.6, RDW 20.2 H, Plt Count 180, MPV 10.9 H, Neut % (Auto) 93.7 H, Lymph % (Auto) 2.9 L, [place] % (Auto) 2.7, Eos % (Auto) 0.0 L, Baso % (Auto) 0.1, Neut # (Auto) 7.8, Lymph # (Auto) 0.2 L, [place] # (Auto) 0.2, Eos # (Auto) 0.0, Baso # (Auto) 0.0, Total Counted 100, Neutrophils % (Manual) 92 H, Lymphocytes % (Manual) 7 L, Monocytes % (Manual) 1 L, Platelet Estimate Normal, Hypochromasia 1+, Sodium 133 L, Potassium 3.7, Chloride 99, Carbon Dioxide 24, Anion Gap 13.7, BUN 15, Creatinine 0.60, Estimated Creat Clear 107, Estimated GFR 115, Est GFR ( Amer) 139, Glucose 132 H, Calcium 9.1, Total Bilirubin 0.3, AST 41 H, ALT 34, Alkaline Phosphatase 70, Total Protein 6.8, Albumin 4.0, Globulin 2.8, Albumin/Globulin Ratio 1.4, Lipase 42, HCG, Quant 56204 H, RPR w/Rflx to Titer Nonreactive 05/31/24 05:46: WBC 2.0 L D, RBC 2.93 L, Hgb 6.8 L* D, Hct 21.2 L, MCV 72.4 L, MCH 23.2 L, MCHC 32.1, RDW 20.0 H, Plt Count 144, MPV 11.4 H, Neut % (Auto) 83.0 H, Lymph % (Auto) 12.0, [place] % (Auto) 2.5, Eos % (Auto) 1.0, Baso % (Auto) 0.5, Neut # (Auto) 1.7 L, Lymph # (Auto) 0.2 L, [place] # (Auto) 0.1, Eos # (Auto) 0.0, Baso # (Auto) 0.0, Sodium 134 L, Potassium 3.3 L, Chloride 107, Carbon Dioxide 20 L, Anion Gap 10.3, BUN 11 D, Creatinine 0.50 L, Estimated Creat Clear 128, Estimated GFR 142, Est GFR ( Amer) 172 D, Glucose 102 H D, Calcium 7.8 L, Total Bilirubin < 0.1 L, AST 30 D, ALT 26, Alkaline Phosphatase 60, Total Protein 5.1 L, Albumin 2.7 L D, Globulin 2.4, Albumin/Globulin Ratio 1.1, Blood Type Confirm A Positive 05/31/24 06:40: Blood Type A Positive, Antibody Screen Negative, Crossmatch (AHG) See Detail I & O for Last 24 hours: Intake & Output 05/28/24 05/29/24 05/30/24 05/31/24 23:59 23:59 23:59 23:59 Intake Total 0 / 0 Output Total 850 / 850 350 / 350 Balance -850 / -850 -350 / -350 Weight 50.802 kg 50.802 kg Microbiology Reports for the Last 24 Hours: Microbiology 05/30/24 14:46 Vaginal Gram Stain - Final 05/30/24 14:56 Vaginal Wet Prep - Final Constitutional Constitutional: mild distress, average body habitus and cooperative *Routine HEENT Exam Head: Present normocephalic Eye: Present EOMI and PERRL ENT: Present mucous membranes moist *Routine Neck Exam Neck: Present supple; Absent lymphadenopathy *Routine Respiratory Exam Respiratory: Present CTA bilaterally; Absent rhonchi, wheezes or crackles *Routine Cardiovascular Exam Cardiovascular: Present tachycardia *Routine Abdominal Exam Abdominal: Present soft, normoactive bowel sounds and tenderness (Mild, lower abdomen) *Routine Rectal Exam Patient deferred: visual exam *Routine Exam Patient deferred: external exam *Routine Extremities Exam Extremities: Absent cyanosis, clubbing or edema *Routine Skin Exam Skin: Present intact, pallor and warm; Absent rash *Routine Neurological Exam Neurological: Present alert, oriented X3 and moving all extremities; Absent altered mental status Meds Home Medications and Allergies Home Medications ?Medication ?Instructions ?Recorded ?Confirmed ?Type No Known Home Medications 05/31/24 05/31/24 History New Prescriptions to Start Prescriptions: Allergies Allergy/AdvReac Type Severity Reaction Status Date / Time No Known Allergies Allergy Verified 05/30/24 11:43 Results Labs 05/31/24 13:00 05/31/24 05:46 Labs: Abnormal lab results 05/30/24 05/30/24 05/31/24 Range/Units 11:40 Unknown 05:46 WBC 2.0 L D (4.8-10.8) K/mm3 RBC 3.82 L 2.93 L (4.20-5.40) M/mm3 Hgb 9.0 L 6.8 L* D (12.2-16.2) g/dL Hct 27.6 L 21.2 L (37.0-47.0) % MCV 72.3 L 72.4 L (81-99) fl MCH 23.6 L 23.2 L (27.0-31.2) pg RDW 20.2 H 20.0 H (11.5-17.5) % MPV 10.9 H 11.4 H (7.4-10.4) fl Neut % (Auto) 93.7 H 83.0 H (37.0-80.0) % Lymph % (Auto) 2.9 L (10-50) % Eos % (Auto) 0.0 L (0.1-12.0) % Neut # (Auto) 1.7 L (1.8-7.8) K/mm3 Lymph # (Auto) 0.2 L 0.2 L (0.7-4.5) K/mm3 Neutrophils % (Manual) 92 H (42-76) % Lymphocytes % (Manual) 7 L (10-50) % Monocytes % (Manual) 1 L (2-9) % Sodium 133 L 134 L (136-145) mmol/L Potassium 3.3 L (3.5-5.1) mmoL/L Carbon Dioxide 20 L (22.0-30.0) mmol/L Creatinine 0.50 L (0.52-1.04) mg/dl Glucose 132 H 102 H D (74-100) mg/dl Calcium 7.8 L (8.4-10.2) mg/dl Total Bilirubin < 0.1 L (0.2-1.3) mg/dl AST 41 H (14-36) U/L Total Protein 5.1 L (6.3-8.2) g/dl Albumin 2.7 L D (3.5-5.0) g/dl HCG, Quant 23619 H (0-5.42) mIU/ml Urine Protein 2+ A (Negative) Urine Blood 1+ A (Negative) Crossmatch (AHG) 05/31/24 Range/Units 06:40 WBC (4.8-10.8) K/mm3 RBC (4.20-5.40) M/mm3 Hgb (12.2-16.2) g/dL Hct (37.0-47.0) % MCV (81-99) fl MCH (27.0-31.2) pg RDW (11.5-17.5) % MPV (7.4-10.4) fl Neut % (Auto) (37.0-80.0) % Lymph % (Auto) (10-50) % Eos % (Auto) (0.1-12.0) % Neut # (Auto) (1.8-7.8) K/mm3 Lymph # (Auto) (0.7-4.5) K/mm3 Neutrophils % (Manual) (42-76) % Lymphocytes % (Manual) (10-50) % Monocytes % (Manual) (2-9) % Sodium (136-145) mmol/L Potassium (3.5-5.1) mmoL/L Carbon Dioxide (22.0-30.0) mmol/L Creatinine (0.52-1.04) mg/dl Glucose (74-100) mg/dl Calcium (8.4-10.2) mg/dl Total Bilirubin (0.2-1.3) mg/dl AST (14-36) U/L Total Protein (6.3-8.2) g/dl Albumin (3.5-5.0) g/dl HCG, Quant (0-5.42) mIU/ml Urine Protein (Negative) Urine Blood (Negative) Crossmatch ([facility]G) See Detail H & H 05/30/24 05/31/24 Range/Units Unknown 05:46 Hgb 9.0 L 6.8 L* D (12.2-16.2) g/dL Hct 27.6 L 21.2 L (37.0-47.0) % All other labs normal. Assessment and Plan *Assessment and plan (1) Sepsis: Status: Acute Qualifiers: Sepsis acute organ dysfunction status: unspecified Sepsis type: sepsis due to unspecified organism Qualified Code(s): A41.9 - Sepsis, unspecified organism Category: Medical Code(s): A41.9 - Sepsis, unspecified organism (2) Spontaneous : Status: Acute Category: Medical Code(s): O03.9 - Complete or unspecified spontaneous without complication (3) Vaginal discharge during in first trimester: Status: Acute Category: Medical Code(s): O26.891 - Other specified related conditions, first trimester; N89.8 - Other specified noninflammatory disorders of vagina (4) Blood loss anemia: Status: Acute Category: Medical Code(s): D50.0 - Iron deficiency anemia secondary to blood loss (chronic) Plan 33-year-old female G6, P5 who presented with symptoms of sepsis. This morning, white count of 2, tachycardia with heart rate of 110, hypotensive. Initiated on IV fluids. Concern for endometritis/chorioamnionitis. Discussed case with product engineering manager, request evaluation to assist with sepsis. Repeat ultrasound obtained this morning shows no viable . Patient appears to have had spontaneous . Blood culture, vaginal culture, urine culture obtained. Recommended broadening antibiotics to vancomycin and Zosyn -Gynecology planning for D&C today. Per my review of transvaginal ultrasound, no viable fetus in the uterus. -Blood culture returned positive for B. fragilis. Awaiting sensitivity -Blood pressure holding stable at this time with fluid resuscitation. No indication for pressors at this time -Recommend Tylenol for fever. Acute blood loss anemia: Agree with transfusion, receiving 2 units today. Transfusion threshold hemoglobin less than 7. Kidney function this morning normal with BUN 11, creatinine 0.5. Repeat CBC, CMP, magnesium ordered for this morning. Thank you for the opportunity to consult on this patient. Will continue to follow along while she is admitted.
[2024-05-31] MEDS: PIPERCILLIN/TAZO 3.375 GM in 0.9 % SODIUM CHLORIDE 50 ML IV ×3 (09:27→21:50)
[2024-05-31] MEDS: LACTOBACILLUS PROBIOTIC COMB CAPSULE 1 CAP PO (09:27)
--- NOTE | 2024-05-31 09:32 | P.CONPHA_ITS ---
Pharmacy Consult Date: 05/31/24 Time: 09:32 Referring provider: JULY Reason for Consult:: VANCOMYCIN INITIATION AND MANAGEMENT Allergies Allergy/AdvReac Type Severity Reaction Status Date / Time No Known Allergies Allergy Verified 05/30/24 11:43 New Prescriptions to Start Prescriptions: Height: 1.55 m Weight: 50.802 kg Laboratory Results:: Laboratory Results - last 24 hr 05/30/24 11:38: SARS-CoV-2 (PCR) Not detected, Influenza A Untype (PCR) Not detected, Influenza Type B (PCR) Not detected 05/30/24 11:40: Urine Color Yellow, Urine Appearance Clear, Urine pH 6.5, Ur Specific [place] >= 1.030, Urine Protein 2+ A, Urine Glucose (UA) Negative, Urine Ketones 1+, Urine Blood 1+ A, Urine Nitrate Negative, Urine Bilirubin Negative, Urine Urobilinogen 0.2, Ur Leukocyte Esterase Negative, Urine RBC Occasional, Urine WBC Occasional, Ur Squamous Epith Cells Occasional, Urine Bacteria Trace 05/30/24 16:43: Lactate 1.5 05/30/24 : WBC 8.3, RBC 3.82 L, Hgb 9.0 L, Hct 27.6 L, MCV 72.3 L, MCH 23.6 L, MCHC 32.6, RDW 20.2 H, Plt Count 180, MPV 10.9 H, Neut % (Auto) 93.7 H, Lymph % (Auto) 2.9 L, [place] % (Auto) 2.7, Eos % (Auto) 0.0 L, Baso % (Auto) 0.1, Neut # (Auto) 7.8, Lymph # (Auto) 0.2 L, [place] # (Auto) 0.2, Eos # (Auto) 0.0, Baso # (Auto) 0.0, Total Counted 100, Neutrophils % (Manual) 92 H, Lymphocytes % (Manual) 7 L, Monocytes % (Manual) 1 L, Platelet Estimate Normal, Hypochromasia 1+, Sodium 133 L, Potassium 3.7, Chloride 99, Carbon Dioxide 24, Anion Gap 13.7, BUN 15, Creatinine 0.60, Estimated Creat Clear 107, Estimated GFR 115, Est GFR ( Amer) 139, Glucose 132 H, Calcium 9.1, Total Bilirubin 0.3, AST 41 H, ALT 34, Alkaline Phosphatase 70, Total Protein 6.8, Albumin 4.0, Globulin 2.8, Albumin/Globulin Ratio 1.4, Lipase 42, HCG, Quant 81894 H, RPR w/Rflx to Titer Nonreactive 05/31/24 05:46: WBC 2.0 L D, RBC 2.93 L, Hgb 6.8 L* D, Hct 21.2 L, MCV 72.4 L, MCH 23.2 L, MCHC 32.1, RDW 20.0 H, Plt Count 144, MPV 11.4 H, Neut % (Auto) 83.0 H, Lymph % (Auto) 12.0, [place] % (Auto) 2.5, Eos % (Auto) 1.0, Baso % (Auto) 0.5, Neut # (Auto) 1.7 L, Lymph # (Auto) 0.2 L, [place] # (Auto) 0.1, Eos # (Auto) 0.0, Baso # (Auto) 0.0, Sodium 134 L, Potassium 3.3 L, Chloride 107, Carbon Dioxide 20 L, Anion Gap 10.3, BUN 11 D, Creatinine 0.50 L, Estimated Creat Clear 128, Estimated GFR 142, Est GFR ( Amer) 172 D, Glucose 102 H D, Calcium 7.8 L , Total Bilirubin < 0.1 L, AST 30 D, ALT 26, Alkaline Phosphatase 60, Total Protein 5.1 L, Albumin 2.7 L D, Globulin 2.4, Albumin/Globulin Ratio 1.1, Blood Type Confirm A Positive 05/31/24 06:40: Blood Type A Positive, Antibody Screen Negative, Crossmatch (AHG) See Detail Medical History: Medical History (Updated 05/31/24 @ 09:17 by Murtaza Bal MD) Lesion of cervix Vaginal discharge during in first trimester Oligohydramnios in first trimester Sepsis Assessment and Plan Assessment and plan all Dx Assessment and Plan for all problems:: PT ADMITTED WITH SUSPECTED SEPSIS. PT RECV'D AMPICILLIN AND GENTAMICIN OVER NIGHT. REQUESTED CHANGE TO ZOSYN TO START THIS AM AND VANCOMYCIN. WILL START 1000MG Q8H THIS AM AND MONITOR DAILY UNTIL VANCOMYCIN DISCONTINUED. THANK YOU.
--- NOTE | 2024-05-31 09:45 | PC.NURSE ---
pt to OR at this time.
--- NOTE | 2024-05-31 09:53 | P.PNANES_ITS ---
[facility] Disclaimer: The information contained in this section may have been updated after the patient was seen, as this information can be updated by other users. Medical History (Updated 05/31/24 @ 09:17 by Murtaza Bal MD) Lesion of cervix Vaginal discharge during in first trimester Oligohydramnios in first trimester Sepsis Social History (Updated 05/30/24 @ 18:48 by Melvin Solomon RN) Smoking Status: Never smoker alcohol intake: former substance use type: denies use current occupational status: unemployed Travel in the last 8 weeks: None [facility] Anesthesia Checklist Patient Identification Patient Identification: Arm Band and Family Structural Data Admitted From: Inpatient Planned Operative Procedure/s: D and C Consent for Planned Operative Procedure(s) Verified: Yes Verified Documents: Surgical Consent and History and Physical NPO Status Verified Time NPO: 00:00 Additional verifications Patient : Yes Anesthesia Reactions: No Hx Blood Transfusions: Yes Blood Transfusion Reaction: No Cephalosporin Allergy: No Previous Colonoscopy: No Airway Assessment Mallampati Score:: Class II C-Spine Mobility Assessed: Yes TMJ Mobility Assessed: Yes Dentition: Good Dentition Neurological Assessment Level of Consciousness: Awake, Alert, Appropriate and Follows Commands Hx Seizures: No Numbness or tingling in extremities: No Anesthesia Plan ASA Class: III Anesthesia Type: General Preoperative Comments Pre-Operative Comments: Severely anemic.
--- NOTE | 2024-05-31 10:06 | P.PN_ITS ---
Subjective *Date: 05/31/24 *Time: 10:06 Interval history: Halley is a 33yo who is HD#2 and being managed for a working diagnosis of septic . This morningthe patient reports hse has a headache, and feels fatigued. She enodreses pasing a large blood clot early this morning. She had fevers overnight Exam Data for Last 24 hours Vital signs and Labs for Last 24 Hours: Temp Pulse Resp BP Pulse Ox O2 Del Method 98.7 F 104 H 16 84/49 L 99 Room Air 05/31/24 09:45 05/31/24 09:45 05/31/24 09:45 05/31/24 09:45 05/31/24 09:45 05/31/24 07:26 Laboratory Results - last 24 hr 05/30/24 11:38: SARS-CoV-2 (PCR) Not detected, Influenza A Untype (PCR) Not detected, Influenza Type B (PCR) Not detected 05/30/24 11:40: Urine Color Yellow, Urine Appearance Clear, Urine pH 6.5, Ur Specific [place] >= 1.030, Urine Protein 2+ A, Urine Glucose (UA) Negative, Urine Ketones 1+, Urine Blood 1+ A, Urine Nitrate Negative, Urine Bilirubin Negative, Urine Urobilinogen 0.2, Ur Leukocyte Esterase Negative, Urine RBC Occasional, Urine WBC Occasional, Ur Squamous Epith Cells Occasional, Urine Bacteria Trace 05/30/24 16:43: Lactate 1.5 05/30/24 : WBC 8.3, RBC 3.82 L, Hgb 9.0 L, Hct 27.6 L, MCV 72.3 L, MCH 23.6 L, MCHC 32.6, RDW 20.2 H, Plt Count 180, MPV 10.9 H, Neut % (Auto) 93.7 H, Lymph % (Auto) 2.9 L, [place] % (Auto) 2.7, Eos % (Auto) 0.0 L, Baso % (Auto) 0.1, Neut # (Auto) 7.8, Lymph # (Auto) 0.2 L, [place] # (Auto) 0.2, Eos # (Auto) 0.0, Baso # (Auto) 0.0, Total Counted 100, Neutrophils % (Manual) 92 H, Lymphocytes % (Manual) 7 L, Monocytes % (Manual) 1 L, Platelet Estimate Normal, Hypochromasia 1+, Sodium 133 L, Potassium 3.7, Chloride 99, Carbon Dioxide 24, Anion Gap 13.7, BUN 15, Creatinine 0.60, Estimated Creat Clear 107, Estimated GFR 115, Est GFR ( Amer) 139, Glucose 132 H, Calcium 9.1, Total Bilirubin 0.3, AST 41 H, ALT 34, Alkaline Phosphatase 70, Total Protein 6.8, Albumin 4.0, Globulin 2.8, Albumin/Globulin Ratio 1.4, Lipase 42, HCG, Quant 79828 H, RPR w/Rflx to Titer Nonreactive 05/31/24 05:46: WBC 2.0 L D, RBC 2.93 L, Hgb 6.8 L* D, Hct 21.2 L, MCV 72.4 L, MCH 23.2 L, MCHC 32.1, RDW 20.0 H, Plt Count 144, MPV 11.4 H, Neut % (Auto) 83.0 H, Lymph % (Auto) 12.0, [place] % (Auto) 2.5, Eos % (Auto) 1.0, Baso % (Auto) 0.5, Neut # (Auto) 1.7 L, Lymph # (Auto) 0.2 L, [place] # (Auto) 0.1, Eos # (Auto) 0.0, Baso # (Auto) 0.0, Sodium 134 L, Potassium 3.3 L, Chloride 107, Carbon Dioxide 20 L, Anion Gap 10.3, BUN 11 D, Creatinine 0.50 L, Estimated Creat Clear 128, Estimated GFR 142, Est GFR ( Amer) 172 D, Glucose 102 H D, Calcium 7.8 L , Total Bilirubin < 0.1 L, AST 30 D, ALT 26, Alkaline Phosphatase 60, Total Protein 5.1 L, Albumin 2.7 L D, Globulin 2.4, Albumin/Globulin Ratio 1.1, Blood Type Confirm A Positive 05/31/24 06:40: Blood Type A Positive, Antibody Screen Negative, Crossmatch (AHG) See Detail I & O for Last 24 hours: Intake & Output 05/28/24 05/29/24 05/30/24 05/31/24 23:59 23:59 23:59 23:59 Intake Total 0 / 0 Output Total 850 / 850 350 / 350 Balance -850 / -850 -350 / -350 Weight 112 lb 112 lb Microbiology Reports for the Last 24 Hours: Microbiology 05/30/24 14:46 Vaginal Gram Stain - Final 05/30/24 14:56 Vaginal Wet Prep - Final Constitutional Constitutional: mild distress and thin Comments: Very pale on exam this morning *Routine HEENT Exam Head: Present normocephalic Eye: Present EOMI and PERRL ENT: Present mucous membranes dry *Routine Neck Exam Neck: Present supple and full ROM; Absent lymphadenopathy *Routine Respiratory Exam Respiratory: Present CTA bilaterally, normal respiratory effort, able to speak in complete sentences and symmetric chest movement; Absent accessory muscle use or diminished air movement *Routine Cardiovascular Exam Cardiovascular: Present tachycardia (with hypotension) *Routine Abdominal Exam Abdominal: Present soft, normoactive bowel sounds and tenderness; Absent rebound or guarding *Routine Extremities Exam Extremities: Present pallor; Absent cyanosis, clubbing or edema *Routine Skin Exam Skin: Present intact, dry and pallor; Absent rash *Routine Neurological Exam Neurological: Present alert, oriented X3, moving all extremities and normal speech Routine Psychiatric Exam Psychiatric: Present normal affect, normal thought process, cooperative, good insight and good judgment Assessment and Plan *Assessment and plan (1) Blood loss anemia: Status: Acute Category: Medical Code(s): D50.0 - Iron deficiency anemia secondary to blood loss (chronic) (2) Lesion of cervix: Status: Acute Category: Medical Code(s): N88.9 - Noninflammatory disorder of cervix uteri, unspecified (3) Sepsis: Status: Acute Qualifiers: Sepsis type: sepsis due to unspecified organism Sepsis acute organ dysfunction status: unspecified Qualified Code(s): A41.9 - Sepsis, unspecified organism Category: Medical Code(s): A41.9 - Sepsis, unspecified organism (4) Spontaneous : Status: Acute Category: Medical Code(s): O03.9 - Complete or unspecified spontaneous without complication Plan #Septic -Transvaginal ultrasound reviewed this morning. I personally reviewed and interpreted the images and reviewed them with the patient. Official read is still pending. Discussed that she likely passed the fetus overnight. Discussed medical and surgical management and recommended surgical management given the likely diagnosis of septic . Patient consented. -Discussed the risk of infection, doxycycline given. Discussed the risk of uterine perforation and we will do this under ultrasound guidance. -Given the broad antibiotic coverage recommended starting a probiotic -vaginal cultures collected in the ED continue follow-up to results -This patient is at an increased risk for VTE as well as atelectasis pneumonia. Recommend SCDs at all times while in bed as well as an incentive spirometer #Cervical lesion -Consented the patient for a biopsy in the OR D&C #Acute blood loss anemia -Discussed blood transfusion with the patient. Reviewed the risks and benefits in detail and the patient consented to blood transfusion, 2 units were ordered -Will follow her vitals and CBC closely #Sepsis -Medicine consulted and following their recommendations -Transition into coverage to Vanco and Zosyn, per hospital guidelines -Respiratory panel pending -Blood cultures pending This patient is critical condition with guarded prognosis. She requires a multidisciplinary team approach. She requires high medical decision making. She has several comorbidities.
--- NOTE | 2024-05-31 11:07 | EXP.ANES.I ---
[facility] [place] Anesthesia Record Part I Anesthesia Record I Intake, IV Amount: 950 Hydration: Adequate Estimated blood loss (mL): 1,200 Urine output (mL): 0 Blood Products used (#): none and FFP Blood Pressure: 103/56 SaO2: 97 Pulse Rate: 122 Airway Patency: Patent Respiratory Rate: 20 Temperature: 98.2 F Patient is:: Drowsy and Stable Stable to PACU at:: 11:02
[2024-05-31] MEDS: KETOROLAC 30MG/ML VIAL 30 MG IV (11:21)
[2024-05-31] MEDS: MORPHINE 2MG/ML SYRINGE 2 MG IV (11:27)
[2024-05-31] MEDS: VANCOMYCIN CONSULT REQUEST 1 EACH NOTAPPLIC (11:37)
[2024-05-31] MEDS: KETOROLAC 30MG/ML VIAL 30 MG (11:38)
[2024-05-31] MEDS: METHYLERGONOVINE MALEATE 0.2MG/ML INJ 0.2 MG IM (11:38)
--- NOTE | 2024-05-31 11:40 | PC.NURSE ---
report received from PACU.
[2024-05-31] MEDS: SODIUM CHLORIDE 0.9% IV (11:48)
[2024-05-31] MEDS: TRANEXAMIC ACID IV (11:48)
--- NOTE | 2024-05-31 11:50 | PC.NURSE ---
pt returned to room from surgery at this time. post op vitals being obtained. at bedside. pt alert and oriented. lung sounds cta, abdomen soft, bowel sounds active. no blood noted to chux pad at this time. scuds in place. call light w/i reach. pt states pain has improved from 5 to 3. warm blankets in place.
--- NOTE | 2024-05-31 11:55 | SUR.OPER ---
1018- Agnieszka Bingham RN brought this RN second unit of blood. 1020- Ist unit of blood stopped by Jennifer Torre CRNA, confirmed by this RN 1023- Sindi Green CRNA and this RN verified all labels on unit of blood to patient sticker. Everything correct. 1024- Sindi Green CRNA started second unit of blood. Unit number for second bag is [id number]. 1030- Verbal orders by Dr Steve for TXA, Cytotec, Hemabate, and methyrgine. VO repeated and correct. Medications pulled and given to Jennifer Torre CRNA. system administration manager documented by AGRICULTURAL ECONOMICS TEACHER. 1044- Second unit of blood completed and stoped by Sindi Green CRNA. 1102- Patient to PACU, report given to Delon LEGGETT.
--- NOTE | 2024-05-31 12:00 | PC.NURSE ---
Dr. Steve called at this time to check on patient, stated she would come over to bedside to see patient.
[2024-05-31] MEDS: VANCOMYCIN HCL 1,000 MG in 0.9 % SODIUM CHLORIDE 250 ML 125 MG IV ×2 (12:01→18:36)
--- NOTE | 2024-05-31 12:19 | EXP.OP.NOTE ---
Date of procedure: 05/31/24 Pre-op Diagnosis:: 1. 11 weeks spontaneous 2. Desires surgical management 3. Sepsis 4. Acute hemorrhagic anemia 5. Rh+ Post-op Diagnosis:: 1. 11 weeks spontaneous 2. Desires surgical management 3. Sepsis 4. Acute hemorrhagic anemia 5. Rh+ Procedure performed:: Dilation and suction curettage Surgeon:: Nadege Steve DO SYSTEM SAFETY ENGINEER:: Bienvenido Green and Murtaza Torre Anesthesia: GETA Estimated blood loss (mL): 1,200 Clinical Note:: Complications: None UOP: 200mL Operative findings:: Dilated cervical os with a yellowish appearing plaque noted to be protruding from the os. Grasped with a ring and noted to extend to the lower uterine segment. Gently removed. Copious bright red blood in the vaginal vault. Operative note:: Halley Venegas is a 33-year-old who presented to the emergency room and was noted to meet sepsis protocol. The patient has been febrile overnight with a Tmax of 103. On presentation there were is cardiac activity, although tachycardia and oligohydramnios was noted. Repeat ultrasound this morning displayed no visible embryo and no detectable cardiac activity. Secondary to concerns for septic decision was made to proceed with surgical management. Overnight the patient experienced a significant hemoglobin drop and on exam this morning she was very pale with dry mucous membranes and decreased capillary refill. The patient also complained of a headache and lethargy. She was consented and received 2 units of packed red blood cells. She was consented for suction D&C. Risk, benefits, and alternatives were reviewed. Risk including but not limited to uterine perforation, bleeding, and infection were discussed. On exam there was noted to be a yellowish plaque near the cervix. This was discussed with the patient and she consented to a biopsy if deemed medically necessary during her procedure. Patient reports that she recently had a Pap smear with [facility] [address] [place] [address] and it was within normal limits. Medications: 2 units of packed red blood cells, doxycycline 200 mg p.o. preoperatively. Intraoperatively the patient was given 20 units and a liter of saline of Pitocin, IM Methergine, [place] Cytotec, and 1 g of IV tranexamic acid The patient was taken back to the operating room where anesthesia was administered. She was placed in the dorsolithotomy position with yellowfin stirrups and sterilely prepped and draped with chlorhexidine in the usual fashion. In and out catheter was used to drain her bladder. Weighted speculum and a right angle retractor was used to visualize the cervix. An Allis applied to the anterior lip cervix. The cervix was adequately dilated and did not require cervical dilation. There was a large amount of yellow crusted tissue protruding from the cervical os. This was grasped serially with ring forceps and twisted until complete removal. After the case this tissue was rinsed with normal saline and noted to be the fetus. Patient was offered karyotyping. The suction curette was inserted to the fundus, hooked to suction, and twisted in a clockwise fashion until the curette was removed. Products noted in the tubing system. This process was repeated several times and there continued to be return of products of conception. The suction canister was required to be replaced. Between each pass while preparing for the next pass there was a significant amount of bleeding. At this time decision was made to give Pitocin, TXA, and a dose of Methergine. Her estimated EBL was greater than 800 at this time. Each pass was performed under direct ultrasound guidance. Once return of material was at a minimum decision was made to proceed with sharp curettage. A large sharp curette was used to gently inserted to the fundus under direct ultrasound visualization. Adequate uterine cry was noted and removal of additional products of conception was appreciated. These were placed on a Telfa to be passed off and sent to pathology. There was still a moderate amount of bleeding and decision was made to place at 1000 mcg of Cytotec at the end of the case. 2 additional gentle passes with a sharp curette were completed with minimal to no products of conception noted. Following this careful attention was given to the bleeding from the cervical os and was noted to be minimal. The ultrasound was used and the uterine lining appeared to be homogeneous and thin. The Allis clamp was removed and hemostasis was noted. The speculum was removed and this completed the procedure. All instrument and sponge counts were correct x2. The patient will be monitored closely in the PACU for additional signs of hemorrhage. She will remain inpatient for continued management of her sepsis Condition: critical Disposition: PACU Specimens:: Products of conception Complications:: None
[2024-05-31 13:05] LABS: Hematocrit 26.4 % (37.0-47.0)
[2024-05-31 13:33] LABS: Hemoglobin 8.6 g/dL (12.2-16.2)
--- NOTE | 2024-05-31 15:59 | PC.NURSE ---
Mikel Arredondo RN called Dr. Steve at this time regarding coming to bedside to see patient.
--- NOTE | 2024-05-31 16:05 | PC.NURSE ---
Dr. Steve at bedside to see patient.
--- NOTE | 2024-05-31 16:23 | PC.NURSE ---
Dr. Bal at bedside to see patient.
--- NOTE | 2024-05-31 21:13 | P.EN_ITS ---
Spent greater than an hour discussing care withthe patient and . Reviewed findings during surgery. discussed blood loss and sepsis concerns. Discussed required close monitoring with guarded prognosis. Discussed blood culture results and that the rest of the cultures were pending. Medicine consulted and state growth from blood culture covered with zosyn. Patient and decline karyotyping to be completed on fetus. They requested to see the fetus, with help of RN fetus was prepared nicely for family to grieve. Pt provided with loss kit and burial box. Reviewed with patient that during surgery there were no cervical masses noted and no biopsy was obtianed. Discussed that i requested her pap smear and it was normal significantly decreasing the likelihood of cervical mal ignancy. Pt started that she had felt bad since geovany but attributed to fatigue of and raising kids. States fevers only recently started. Pt responded well to 2u PRBCs. Hgb improved We will continue frequent monitoring of vitals CBC and CMP in the morning continue abx recc SCDs and incentive spirometery
[2024-06-01] VITALS (15 sets, daily range): BP systolic 81–104; BP diastolic 44–76; PULSE 71–82; RESP 14–18; TEMP 36.7–36.9; O2SAT 98–100
[2024-06-01] MEDS: VANCOMYCIN HCL 1,000 MG in 0.9 % SODIUM CHLORIDE 250 ML 125 MG IV ×3 (02:45→18:44)
[2024-06-01] MEDS: LACTATED RINGERS 1000ML 1,000 ML 100 ML IV (04:44)
[2024-06-01] MEDS: PIPERCILLIN/TAZO 3.375 GM in 0.9 % SODIUM CHLORIDE 50 ML IV ×4 (04:44→22:09)
[2024-06-01 07:42] LABS: Basophils % 0.3 % (0.1-2.0); Hematocrit 21.3 % (37.0-47.0); Mean Corpuscular Hemoglobin 25.1 pg (27.0-31.2); Mean Corpuscular Volume 75.3 fl (81-99); Mean Platelet Volume 11.2 fl (7.4-10.4); Monocytes # 0.4 K/mm3 (0.1-1.0); Platelet Count 134 K/mm3 (142-424); Red Blood Count 2.83 M/mm3 (4.20-5.40); Red Cell Distribution Width 20.2 % (11.5-17.5); White Blood Count 6.7 K/mm3 (4.8-10.8)
[2024-06-01 07:44] LABS: Eosinophils % 0.3 % (0.1-12.0)
[2024-06-01 07:47] LABS: Lymphocytes # 0.8 K/mm3 (0.7-4.5); Lymphocytes % 12.1 % (10-50); Mean Corpuscular HGB Conc 32.7 g/dL (31.8-35.4); Monocytes % 6.1 % (1.7-9.3)
[2024-06-01 07:52] LABS: Albumin Level 2.2 g/dl (3.5-5.0); Chloride 109 mmol/L (98-107); Potassium 3.7 mmoL/L (3.5-5.1); Sodium 135 mmol/L (136-145)
[2024-06-01 07:55] LABS: Alanine Aminotransferase 31 U/L (12-78); Alkaline Phosphatase 79 U/L (38-126); Anion Gap 7.7 mEq/L (5-15); Aspartate Amino Transferase 34 U/L (14-36); Bilirubin,Total 0.2 mg/dl (0.2-1.3); Blood Urea Nitrogen 10 mg/dl (7-17); Calcium 7.5 mg/dl (8.4-10.2); Carbon Dioxide 22 mmol/L (22.0-30.0); Creatinine Clearance Estimated 128 mL/min (50-200); Estimated Glomerular Filt Rate 142 ml/min (>60); GFR (African American) 172 ML/MIN (>60); Globulin 2.1 g/dL (1.3-3.2); Glucose 92 mg/dl (74-100); Magnesium 1.6 mg/dl (1.6-2.3); Total Protein,Serum 4.3 g/dl (6.3-8.2)
[2024-06-01] MEDS: LACTOBACILLUS PROBIOTIC COMB CAPSULE 1 CAP PO (09:08)
[2024-06-01 11:11] LABS: Vancomycin,Trough 8.6 ug/mL (5.0-10.0)
--- NOTE | 2024-06-01 11:30 | PC.NURSE ---
Dr. Bal at bedside.
[2024-06-01] MEDS: MAGNESIUM SULFATE IN WATER 2 GM/50 ML PIGGYBACK IV (11:36)
[2024-06-01] MEDS: POTASSIUM CHLORIDE 20MEQ TAB 40 MEQ PO (11:36)
[2024-06-01] MEDS: PHA TO NURSING INSTRUCTION 1 EACH NOTAPPLIC (11:36)
--- NOTE | 2024-06-01 12:46 | EXP.ACUTE.PN ---
Subjective *Date: 06/01/24 *Time: 18:25 Interval history: Patient states she feels little better today. Minimal vaginal discharge. Stable on room air. No chest pain or shortness of breath. Denies nausea or vomiting. Quite pale on exam. Complaining of headache Medical Exam Vital signs and Labs for Last 24 Hours: Vital Signs Temp Pulse Resp BP Pulse Ox O2 Del Method 06/01/24 10:00 Room Air 06/01/24 08:00 Room Air 06/01/24 08:00 98.0 F 78 14 101/57 L 100 Room Air 06/01/24 06:00 Room Air 06/01/24 04:44 98.4 F 74 18 81/45 L 100 Room Air 06/01/24 04:44 Room Air 06/01/24 02:00 Room Air 06/01/24 00:40 98.5 F 82 18 91/51 L 98 Room Air 06/01/24 00:00 Room Air 05/31/24 21:55 Room Air 05/31/24 20:01 98.7 F 88 17 99/50 L 98 Room Air 05/31/24 20:00 Room Air 05/31/24 18:50 98.4 F 92 H 16 95/51 L 99 Room Air 05/31/24 18:00 Room Air 05/31/24 17:50 98.7 F 90 16 96/51 L 98 Room Air 05/31/24 16:50 95 H 16 94/52 L 98 Room Air 05/31/24 16:00 Room Air 05/31/24 15:50 98.7 F 89 16 92/51 L 97 Room Air 05/31/24 14:50 99.0 F 93 H 16 94/46 L 98 Room Air 05/31/24 14:20 95 H 16 93/50 L 96 Room Air 05/31/24 14:00 Room Air 05/31/24 13:50 103 H 16 92/42 L 96 Room Air 05/31/24 13:20 99.0 F 95 H 16 94/47 L 96 Room Air 05/31/24 12:50 97 H 16 96/48 L 96 Room Air Intake and Output 05/31/24 06/01/24 06/01/24 23:59 07:59 15:59 Output Total 300 / 1150 1100 / 1100 0 / 1100 Balance -300 / -200 -1100 / -1100 0 / -1100 Output: Output, Urine Amount 300 / 1150 1100 / 1100 0 / 1100 Other: Number of Unmeasured Voids 1 Laboratory Results - last 24 hr 05/31/24 06:40: Blood Type A Positive, Antibody Screen Negative, Crossmatch (AHG) See Detail 05/31/24 13:00: Hgb 8.6 L D, Hct 26.4 L 06/01/24 07:15: WBC 6.7 D, RBC 2.83 L, Hgb 7.0 L, Hct 21.3 L, MCV 75.3 L, MCH 25.1 L, MCHC 32.7, RDW 20.2 H, Plt Count 134 L, MPV 11.2 H, Neut % (Auto) 79.0, Lymph % (Auto) 12.1, [place] % (Auto) 6.1, Eos % (Auto) 0.3, Baso % (Auto) 0.3, Neut # (Auto) 5.0, Lymph # (Auto) 0.8, [place] # (Auto) 0.4, Eos # (Auto) 0.0, Baso # (Auto) 0.0, Sodium 135 L, Potassium 3.7, Chloride 109 H, Carbon Dioxide 22, Anion Gap 7.7, BUN 10, Creatinine 0.50 L, Estimated Creat Clear 128, Estimated GFR 142, Est GFR ( Amer) 172, Glucose 92, Calcium 7.5 L, Magnesium 1.6, Total Bilirubin 0.2, AST 34, ALT 31, Alkaline Phosphatase 79, Total Protein 4.3 L, Albumin 2.2 L D, Globulin 2.1, Albumin/Globulin Ratio 1.0 L 06/01/24 10:25: Vancomycin Trough 8.6 I & O for Labs for Last 24 Hours: Intake & Output 05/29/24 05/30/24 05/31/24 06/01/24 23:59 23:59 23:59 23:59 Intake Total 950 / 950 Output Total 850 / 850 650 / 1150 1100 / 1100 Balance -850 / -850 300 / -200 -1100 / -1100 Weight 50.802 kg 50.802 kg Microbiology Reports for the Last 24 Hours: Microbiology 05/30/24 14:46 Vaginal Gram Stain - Final 05/30/24 14:46 Vaginal Genital Culture - Preliminary 05/30/24 11:06 Urine,Clean Catch Urine Culture - Final 05/30/24 15:17 Blood Blood Culture - Preliminary 05/30/24 15:25 Blood Blood Culture - Preliminary NO GROWTH AFTER 24 HOURS 05/31/24 10:30 Other Gram Stain - Final Constitutional: Present no acute distress, average body habitus and cooperative Head: Present atraumatic and normocephalic ENT: Present normal exam Respiratory: Present normal respiratory effort; Absent rhonchi, wheezes or crackles Cardiac: Present Reg Rate and Rhythm GI: Present soft, tenderness (Minimal in lower abdomen) and normal bowel sounds; Absent distention Extremities: Present normal inspection and full ROM Skin: Present intact; Absent erythema Neuro: Present Grossly Intact, alert, awake, oriented x 3 and moves all extremities Assessment and Plan *Assessment and plan (1) Sepsis: Status: Acute Qualifiers: Sepsis acute organ dysfunction status: unspecified Sepsis type: sepsis due to unspecified organism Qualified Code(s): A41.9 - Sepsis, unspecified organism Category: Medical Code(s): A41.9 - Sepsis, unspecified organism (2) Bacterial infection due to Bacteroides fragilis: Status: Acute Category: Medical Code(s): A49.8 - Other bacterial infections of unspecified site (3) Spontaneous : Status: Acute Category: Medical Code(s): O03.9 - Complete or unspecified spontaneous without complication (4) Vaginal discharge during in first trimester: Status: Acute Category: Medical Code(s): O26.891 - Other specified related conditions, first trimester; N89.8 - Other specified noninflammatory disorders of vagina (5) Blood loss anemia: Status: Acute Category: Medical Code(s): D50.0 - Iron deficiency anemia secondary to blood loss (chronic) Plan 33-year-old female G6, P5 who presented with symptoms of sepsis. Hemodynamically stable this morning but still quite pale from anemia. Blood cultures returned positive for B fragilis. Afebrile overnight. Continues to require inpatient management for IV antibiotics. High risk for decompensation. Problems addressed as follows: Sepsis Bacteroides bacteremia Spontaneous -Discussed case with gynecology this morning. Agreed to continue Zosyn 3.375 g IV every 6 hours. Continue Vanco dosed every 8 hours 1 g. Initial blood culture grew Bacteroides. Awaiting sensitivities for more definitive therapy. Anticipate treatment for 7 to 10 days. -Urine cultures still pending along with vaginal cultures. -Status post D&C yesterday, had significant blood loss. -Recommend Tylenol for fever. -White count normalized to 6.7. Repeat CBC, CMP, magnesium ordered for the morning. Acute blood loss anemia: Hemoglobin 7 today, received 2 units yesterday. Will transfuse an additional unit of packed red blood cells today. Threshold hemoglobin less than repeat TSH ordered 2 hours after transfusion 7. Kidney function this morning normal with 10, creatinine 0.5. Electrolytes stable with potassium 3.7, magnesium 1.2. Albumin low at 2.2. Encouraged p.o. intake. Thank you for the opportunity to consult on this patient. Will continue to follow along while she is admitted.
[2024-06-01] MEDS: 0.9 % SODIUM CHLORIDE 250 ML IV (13:05)
--- NOTE | 2024-06-01 13:35 | P.PN_ITS ---
Subjective *Date: 06/01/24 *Time: 13:35 Interval history: This morning the patient reports that she feels much better. She does report that she has a slight headache. Denies significant abdominal pain. Reports that she has been able to eat her meals without significant nausea or vomiting. Endorses that her energy and color are improved, but she still not back to baseline. She was afebrile overnight. Denies any significant vaginal bleeding or vaginal discharge. Exam Data for Last 24 hours Vital signs and Labs for Last 24 Hours: Temp Pulse Resp BP Pulse Ox O2 Del Method 98.3 F 82 16 100/55 L 99 Room Air 06/01/24 13:15 06/01/24 13:15 06/01/24 13:15 06/01/24 13:15 06/01/24 13:15 06/01/24 10:00 Laboratory Results - last 24 hr 05/31/24 06:40: Blood Type A Positive, Antibody Screen Negative, Crossmatch (AHG) See Detail 06/01/24 07:15: WBC 6.7 D, RBC 2.83 L, Hgb 7.0 L, Hct 21.3 L, MCV 75.3 L, MCH 25.1 L, MCHC 32.7, RDW 20.2 H, Plt Count 134 L, MPV 11.2 H, Neut % (Auto) 79.0, Lymph % (Auto) 12.1, [place] % (Auto) 6.1, Eos % (Auto) 0.3, Baso % (Auto) 0.3, Neut # (Auto) 5.0, Lymph # (Auto) 0.8, [place] # (Auto) 0.4, Eos # (Auto) 0.0, Baso # (Auto) 0.0, Sodium 135 L, Potassium 3.7, Chloride 109 H, Carbon Dioxide 22, Anion Gap 7.7, BUN 10, Creatinine 0.50 L, Estimated Creat Clear 128, Estimated GFR 142, Est GFR ( Amer) 172, Glucose 92, Calcium 7.5 L, Magnesium 1.6, Total Bilirubin 0.2, AST 34, ALT 31, Alkaline Phosphatase 79, Total Protein 4.3 L, Albumin 2.2 L D, Globulin 2.1, Albumin/Globulin Ratio 1.0 L 06/01/24 10:25: Vancomycin Trough 8.6 I & O for Last 24 hours: Intake & Output 05/29/24 05/30/24 05/31/24 06/01/24 23:59 23:59 23:59 23:59 Intake Total 950 / 950 0 / 0 Output Total 850 / 850 650 / 1150 1100 / 1100 Balance -850 / -850 300 / -200 -1100 / -1100 Weight 112 lb 112 lb Microbiology Reports for the Last 24 Hours: Microbiology 05/31/24 10:30 Other Gram Stain - Final 05/31/24 10:30 Other Surgical Biopsy Culture - Preliminary NO GROWTH AFTER 24 HOURS 05/30/24 14:46 Vaginal Gram Stain - Final 05/30/24 14:46 Vaginal Genital Culture - Preliminary 05/30/24 11:06 Urine,Clean Catch Urine Culture - Final 05/30/24 15:17 Blood Blood Culture - Preliminary 05/30/24 15:25 Blood Blood Culture - Preliminary NO GROWTH AFTER 24 HOURS Narrative: General: patient is alert oriented in no acute distress and responds appropriately to questions. Appears to be in minimal pain. tolerating regular diet. HEENT: NCAT, EOMI, dry mucous membranes, neck supple with full ROM Cardiovascular: RRR Pulmonary: Clear to auscultation bilaterally, nonlabored breathing, symmetric chest rise Abdominal: nonpalpable fundus. very minimal tenderness, appropriate for postoperative timeframe Extremities: trace edema, no tenderness or cyanosis noted Skin: Normal turgor, intact, warm. pallor present Neurologic: Negative for sensory or motor deficit Psychiatric: Normal affect, normal thought process, good judgment and insight, no depression or anxious mood appreciated. Assessment and Plan *Assessment and plan (1) Blood loss anemia: Status: Acute Category: Medical Code(s): D50.0 - Iron deficiency anemia secondary to blood loss (chronic) (2) Lesion of cervix: Status: Acute Category: Medical Code(s): N88.9 - Noninflammatory disorder of cervix uteri, unspecified (3) Sepsis: Status: Acute Qualifiers: Sepsis type: sepsis due to unspecified organism Sepsis acute organ dysfunction status: unspecified Qualified Code(s): A41.9 - Sepsis, unspecified organism Category: Medical Code(s): A41.9 - Sepsis, unspecified organism (4) Spontaneous : Status: Acute Category: Medical Code(s): O03.9 - Complete or unspecified spontaneous without complication Plan Potassium and Magnesium replaced this morning. Hgb this mornin.0 in the setting of persistent headache and pallor with intraoperative hemorrhage yesterday, consented for additional unit of blood. Repeat CBC and CMP in the morning Continued SCDs at all times while in bed as well as an incentive spirometer Continue antibiotics continue following for cultures Patients condition is improving. discussed possible discharge home monday or monday or continued improvemnt. Continues to requires a multidisciplinary team approach and high medical decision making. At this point she has required one on one nursing care for significant portions of her admission
--- NOTE | 2024-06-01 14:39 | EXP.PHA.CONS ---
Pharmacy Consult Date: 06/01/24 Time: 14:39 Referring provider: DR. DAVIDSON Reason for Consult:: VANCOMYCIN LEVEL Allergies Allergy/AdvReac Type Severity Reaction Status Date / Time No Known Allergies Allergy Verified 05/30/24 11:43 Home Medications ?Medication ?Instructions ?Recorded ?Confirmed ?Type No Known Home Medications 05/31/24 05/31/24 History New Prescriptions to Start Prescriptions: Height: 1.55 m Weight: 50.802 kg Laboratory Results:: Laboratory Results - last 24 hr 05/31/24 06:40: Blood Type A Positive, Antibody Screen Negative, Crossmatch (AHG) See Detail 06/01/24 07:15: WBC 6.7 D, RBC 2.83 L, Hgb 7.0 L, Hct 21.3 L, MCV 75.3 L, MCH 25.1 L, MCHC 32.7, RDW 20.2 H, Plt Count 134 L, MPV 11.2 H, Neut % (Auto) 79.0, Lymph % (Auto) 12.1, [place] % (Auto) 6.1, Eos % (Auto) 0.3, Baso % (Auto) 0.3, Neut # (Auto) 5.0, Lymph # (Auto) 0.8, [place] # (Auto) 0.4, Eos # (Auto) 0.0, Baso # (Auto) 0.0, Sodium 135 L, Potassium 3.7, Chloride 109 H, Carbon Dioxide 22, Anion Gap 7.7, BUN 10, Creatinine 0.50 L, Estimated Creat Clear 128, Estimated GFR 142, Est GFR ( Amer) 172, Glucose 92, Calcium 7.5 L, Magnesium 1.6, Total Bilirubin 0.2, AST 34, ALT 31, Alkaline Phosphatase 79, Total Protein 4.3 L, Albumin 2.2 L D, Globulin 2.1, Albumin/Globulin Ratio 1.0 L 06/01/24 10:25: Vancomycin Trough 8.6 Medical History: Medical History (Updated 06/01/24 @ 12:47 by Murtaza Davidson MD) Lesion of cervix Vaginal discharge during in first trimester Oligohydramnios in first trimester Sepsis Assessment and Plan Assessment and plan all Dx Assessment and Plan for all problems:: PATIENT'S VANCOMYCIN TROUGH LEVEL WAS 8.6 MCG/ML THIS AM PRIOR TO 4TH DOSE WITH Q8H DOSING. WILL RECHECK IN THE AM.
[2024-06-01 16:49] LABS: Hematocrit 24.1 % (37.0-47.0)
[2024-06-01 17:09] LABS: Hemoglobin 7.9 g/dL (12.2-16.2)
[2024-06-02] VITALS (7 sets, daily range): BP systolic 88–102; BP diastolic 48–67; PULSE 70–78; RESP 16–18; TEMP 36.6–37.1; O2SAT 96–98
[2024-06-02] MEDS: VANCOMYCIN HCL 1,000 MG in 0.9 % SODIUM CHLORIDE 250 ML 125 MG IV ×2 (02:38→11:04)
[2024-06-02] MEDS: PIPERCILLIN/TAZO 3.375 GM in 0.9 % SODIUM CHLORIDE 50 ML IV ×2 (04:36→10:24)
--- NOTE | 2024-06-02 04:46 | PC.NURSE ---
Patient resting in bed at this time, reassessment completed, bilateral lung sounds clear throughout, bowel sounds active in all quadrants, pt has slept throughout the shift, pt has ambulated to bathroom independently, IV in left forearm still patent, pt denies any needs at this time.
[2024-06-02 08:32] LABS: Basophils % 0.4 % (0.1-2.0); Eosinophils # 0.1 K/mm3 (0.0-0.4); Eosinophils % 2.5 % (0.1-12.0); Hematocrit 25.8 % (37.0-47.0); Hemoglobin 8.5 g/dL (12.2-16.2); Lymphocytes # 1.3 K/mm3 (0.7-4.5); Mean Corpuscular HGB Conc 32.9 g/dL (31.8-35.4); Mean Corpuscular Hemoglobin 25.6 pg (27.0-31.2); Mean Corpuscular Volume 77.7 fl (81-99); Monocytes # 0.4 K/mm3 (0.1-1.0); Neutrophils # 3.6 K/mm3 (1.8-7.8); Platelet Count 164 K/mm3 (142-424); Red Blood Count 3.32 M/mm3 (4.20-5.40); Red Cell Distribution Width 20.5 % (11.5-17.5); White Blood Count 5.6 K/mm3 (4.8-10.8)
[2024-06-02 08:44] LABS: Albumin Level 2.3 g/dl (3.5-5.0); Chloride 109 mmol/L (98-107); Potassium 3.7 mmoL/L (3.5-5.1); Sodium 136 mmol/L (136-145)
--- NOTE | 2024-06-02 08:45 | PC.NURSE ---
patient doing well this morning, states she slept well, requested to shower, nurse gave precautions, covered IV site securely, linens changed
[2024-06-02 08:47] LABS: Alanine Aminotransferase 39 U/L (12-78); Alkaline Phosphatase 79 U/L (38-126); Anion Gap 9.7 mEq/L (5-15); Aspartate Amino Transferase 32 U/L (14-36); Blood Urea Nitrogen 14 mg/dl (7-17); Carbon Dioxide 21 mmol/L (22.0-30.0); Creatinine Clearance Estimated 107 mL/min (50-200); Estimated Glomerular Filt Rate 115 ml/min (>60); GFR (African American) 139 ML/MIN (>60); Globulin 2.2 g/dL (1.3-3.2); Total Protein,Serum 4.5 g/dl (6.3-8.2)
[2024-06-02 08:48] LABS: Bilirubin,Total 0.1 mg/dl (0.2-1.3); Calcium 7.4 mg/dl (8.4-10.2); Glucose 77 mg/dl (74-100)
[2024-06-02 08:49] LABS: Magnesium 1.9 mg/dl (1.6-2.3)
[2024-06-02] MEDS: LACTOBACILLUS PROBIOTIC COMB CAPSULE 1 CAP PO (09:08)
[2024-06-02] MEDS: IRON SUCROSE COMPLEX 200 MG in 0.9 % SODIUM CHLORIDE 100 ML 220 MG IV (09:13)
--- NOTE | 2024-06-02 10:05 | PC.NURSE ---
Dr. Bal at bedside, IV infiltrated, new one started without difficulty
--- NOTE | 2024-06-02 10:13 | P.PN_ITS ---
Subjective *Date: 06/02/24 *Time: 16:04 Interval history: Patient feeling much better today. Afebrile. Minimal pain meds needed. Tolerating p.o. intake. Still having minimal vaginal spotting. Exam Data for Last 24 hours Vital signs and Labs for Last 24 Hours: Temp Pulse Resp BP Pulse Ox O2 Del Method 98.2 F 71 16 95/51 L 98 Room Air 06/02/24 08:00 06/02/24 08:00 06/02/24 08:00 06/02/24 08:00 06/02/24 08:00 06/02/24 08:34 Laboratory Results - last 24 hr 05/31/24 06:40: Blood Type A Positive, Antibody Screen Negative, Crossmatch (AHG) See Detail 06/01/24 10:25: Vancomycin Trough 8.6 06/01/24 16:45: Hgb 7.9 L D, Hct 24.1 L 06/02/24 07:37: WBC 5.6, RBC 3.32 L, Hgb 8.5 L, Hct 25.8 L, MCV 77.7 L, MCH 25.6 L, MCHC 32.9, RDW 20.5 H, Plt Count 164, MPV 11.0 H, Neut % (Auto) 64.0, Lymph % (Auto) 23.0, [place] % (Auto) 7.0, Eos % (Auto) 2.5, Baso % (Auto) 0.4, Neut # (Auto) 3.6, Lymph # (Auto) 1.3, [place] # (Auto) 0.4, Eos # (Auto) 0.1, Baso # (Auto) 0.0, Sodium 136, Potassium 3.7, Chloride 109 H, Carbon Dioxide 21 L, Anion Gap 9.7, BUN 14 D, Creatinine 0.60, Estimated Creat Clear 107, Estimated GFR 115, Est GFR ( Amer) 139, Glucose 77, Calcium 7.4 L, Magnesium 1.9 D , Total Bilirubin 0.1 L, AST 32, ALT 39 D, Alkaline Phosphatase 79, Total Protein 4.5 L, Albumin 2.3 L, Globulin 2.2, Albumin/Globulin Ratio 1.0 L I & O for Last 24 hours: Intake & Output 05/30/24 05/31/24 06/01/24 06/02/24 23:59 23:59 23:59 23:59 Intake Total 950 / 950 250 / 250 Output Total 850 / 850 650 / 1150 1100 / 1100 1600 / 1600 Balance -850 / -850 300 / -200 -850 / -850 -1600 / -1600 Weight 50.802 kg 50.802 kg 50.802 kg Microbiology Reports for the Last 24 Hours: Microbiology 05/30/24 14:46 Vaginal Gram Stain - Final 05/30/24 14:46 Vaginal Genital Culture - Preliminary Gram Positive Cocci Gram Positive Cocci#2 05/30/24 15:25 Blood Blood Culture - Preliminary NO GROWTH AFTER 48 HOURS 05/31/24 10:30 Other Gram Stain - Final 05/31/24 10:30 Other Surgical Biopsy Culture - Preliminary NO GROWTH AFTER 24 HOURS 05/30/24 11:06 Urine,Clean Catch Urine Culture - Final Constitutional Constitutional: no acute distress, average body habitus and cooperative *Routine HEENT Exam Head: Present normocephalic Eye: Present EOMI and PERRL ENT: Present mucous membranes moist *Routine Neck Exam Neck: Present supple; Absent lymphadenopathy *Routine Respiratory Exam Respiratory: Present CTA bilaterally; Absent rhonchi, wheezes or crackles *Routine Cardiovascular Exam Cardiovascular: Present tachycardia *Routine Abdominal Exam Abdominal: Present soft, normoactive bowel sounds and tenderness (Mild, lower abdomen) *Routine Rectal Exam Patient deferred: visual exam *Routine Exam Patient deferred: external exam *Routine Extremities Exam Extremities: Absent cyanosis, clubbing or edema *Routine Skin Exam Skin: Present intact, pallor and warm; Absent rash *Routine Neurological Exam Neurological: Present alert, oriented X3 and moving all extremities; Absent altered mental status Assessment and Plan *Assessment and plan (1) Sepsis: Status: Acute Qualifiers: Sepsis acute organ dysfunction status: unspecified Sepsis type: sepsis due to unspecified organism Qualified Code(s): A41.9 - Sepsis, unspecified organism Category: Medical Code(s): A41.9 - Sepsis, unspecified organism (2) Bacterial infection due to Bacteroides fragilis: Status: Acute Category: Medical Code(s): A49.8 - Other bacterial infections of unspecified site (3) Spontaneous : Status: Acute Category: Medical Code(s): O03.9 - Complete or unspecified spontaneous without complication (4) Vaginal discharge during in first trimester: Status: Acute Category: Medical Code(s): O26.891 - Other specified related conditions, first trimester; N89.8 - Other specified noninflammatory disorders of vagina (5) Blood loss anemia: Status: Acute Category: Medical Code(s): D50.0 - Iron deficiency anemia secondary to blood loss (chronic) Plan 33-year-old female G6, P5 who presented with symptoms of sepsis. Hemodynamically stable this morning but still quite pale from anemia. Blood cultures returned positive for B fragilis. Afebrile overnight. Discussed case with gynecology today, will transition to oral antibiotics. Monitor for 24 more hours. If stable tomorrow, likely discharge home. Recommendations and problems addressed as follows: Sepsis Bacteroides bacteremia Spontaneous -Discussed case with gynecology this morning. Will discontinue Zosyn today. Transition to metronidazole. 500 mg 3 times a day. If does well over the next 24 hours, will discharge home to complete 10-day total course from start of Zosyn. -Blood culture with Bacteroides still pending sensitivity. -Urine cultures still pending along with vaginal cultures. -Status post D&C 05/31. had significant blood loss. -Recommend Tylenol for fever. -White count normal at 5.6. Repeat CBC, CMP, magnesium ordered for the morning. Acute blood loss anemia: -Status post transfusion 1 unit yesterday. Transfusion threshold hemoglobin less than 7. Hemoglobin 8.5 today, doing better. MCV low at 77 however. Recommend 1 dose Venofer 200 mg IV once today. Would benefit from completing course as an outpatient if unable to tolerate p.o. replacement Kidney function this morning normal with 14, creatinine 0.6. Electrolytes stable with potassium 3.7, magnesium 1.9 Encouraged p.o. intake. Thank you for the opportunity to consult on this patient. Will continue to follow along while she is admitted.
[2024-06-02 10:34] LABS: Vancomycin,Trough 11.7 ug/mL (5.0-10.0)
--- NOTE | 2024-06-02 13:52 | PC.NURSE ---
at bedside discussing POC
--- NOTE | 2024-06-02 14:55 | P.CONPHA_ITS ---
Pharmacy Consult Date: 06/02/24 Time: 14:55 Referring provider: DR. DAVIDSON Reason for Consult:: VANCOMYCIN Allergies Allergy/AdvReac Type Severity Reaction Status Date / Time No Known Allergies Allergy Verified 05/30/24 11:43 Home Medications ?Medication ?Instructions ?Recorded ?Confirmed ?Type No Known Home Medications 05/31/24 05/31/24 History New Prescriptions to Start Prescriptions: Height: 1.55 m Weight: 50.802 kg Laboratory Results:: Laboratory Results - last 24 hr 05/31/24 06:40: Crossmatch (AHG) See Detail 06/01/24 16:45: Hgb 7.9 L D, Hct 24.1 L 06/02/24 07:37: WBC 5.6, RBC 3.32 L, Hgb 8.5 L, Hct 25.8 L, MCV 77.7 L, MCH 25.6 L, MCHC 32.9, RDW 20.5 H, Plt Count 164, MPV 11.0 H, Neut % (Auto) 64.0, Lymph % (Auto) 23.0, [place] % (Auto) 7.0, Eos % (Auto) 2.5, Baso % (Auto) 0.4, Neut # (Auto) 3.6, Lymph # (Auto) 1.3, [place] # (Auto) 0.4, Eos # (Auto) 0.1, Baso # (Auto) 0.0, Sodium 136, Potassium 3.7, Chloride 109 H, Carbon Dioxide 21 L, Anion Gap 9.7, BUN 14 D, Creatinine 0.60, Estimated Creat Clear 107, Estimated GFR 115, Est GFR ( Amer) 139, Glucose 77, Calcium 7.4 L, Magnesium 1.9 D , Total Bilirubin 0.1 L, AST 32, ALT 39 D, Alkaline Phosphatase 79, Total Protein 4.5 L, Albumin 2.3 L, Globulin 2.2, Albumin/Globulin Ratio 1.0 L 06/02/24 10:00: Vancomycin Trough 11.7 H Medical History: Medical History (Updated 06/01/24 @ 12:47 by Murtaza Davidson MD) Lesion of cervix Vaginal discharge during in first trimester Oligohydramnios in first trimester Sepsis Assessment and Plan Assessment and plan all Dx Assessment and Plan for all problems:: PATIENT'S VANCOMYCIN TROUGH LEVEL WAS 11.7 MCG/ML TODAY. RECOMMEND CONTINUING WITH VANCOMYCIN 1000 MG Q8H AT THIS TIME.
--- NOTE | 2024-06-02 16:04 | EXP.PN ---
Subjective *Date: 06/02/24 *Time: 16:04 Interval history: This morning the patient reports that she feels much better, and honestly desires DC home. Headache improved. Denies significant abdominal pain. Reports that she has been able to eat her meals without significant nausea or vomiting. Endorses that her energy and color are improved, but she still not back to baseline. She was afebrile overnight. Denies any significant vaginal bleeding or vaginal discharge. Exam Data for Last 24 hours Vital signs and Labs for Last 24 Hours: Temp Pulse Resp BP Pulse Ox O2 Del Method 97.8 F 70 16 97/63 L 98 Room Air 06/02/24 12:00 06/02/24 12:00 06/02/24 12:00 06/02/24 12:00 06/02/24 12:00 06/02/24 08:34 Laboratory Results - last 24 hr 05/31/24 06:40: Crossmatch (AHG) See Detail 06/01/24 16:45: Hgb 7.9 L D, Hct 24.1 L 06/02/24 07:37: WBC 5.6, RBC 3.32 L, Hgb 8.5 L, Hct 25.8 L, MCV 77.7 L, MCH 25.6 L, MCHC 32.9, RDW 20.5 H, Plt Count 164, MPV 11.0 H, Neut % (Auto) 64.0, Lymph % (Auto) 23.0, [place] % (Auto) 7.0, Eos % (Auto) 2.5, Baso % (Auto) 0.4, Neut # (Auto) 3.6, Lymph # (Auto) 1.3, [place] # (Auto) 0.4, Eos # (Auto) 0.1, Baso # (Auto) 0.0, Sodium 136, Potassium 3.7, Chloride 109 H, Carbon Dioxide 21 L, Anion Gap 9.7, BUN 14 D, Creatinine 0.60, Estimated Creat Clear 107, Estimated GFR 115, Est GFR ( Amer) 139, Glucose 77, Calcium 7.4 L, Magnesium 1.9 D, Total Bilirubin 0.1 L, AST 32, ALT 39 D, Alkaline Phosphatase 79, Total Protein 4.5 L, Albumin 2.3 L, Globulin 2.2, Albumin/Globulin Ratio 1.0 L 06/02/24 10:00: Vancomycin Trough 11.7 H I & O for Last 24 hours: Intake & Output 05/30/24 05/31/24 06/01/24 06/02/24 23:59 23:59 23:59 23:59 Intake Total 950 / 950 250 / 250 Output Total 850 / 850 650 / 1150 1100 / 1100 1600 / 1600 Balance -850 / -850 300 / -200 -850 / -850 -1600 / -1600 Weight 112 lb 112 lb 112 lb 112 lb Microbiology Reports for the Last 24 Hours: Microbiology 05/31/24 10:30 Other Gram Stain - Final 05/31/24 10:30 Other Surgical Biopsy Culture - Preliminary NO GROWTH AFTER 48 HOURS 05/30/24 14:46 Vaginal Gram Stain - Final 05/30/24 14:46 Vaginal Genital Culture - Preliminary Gram Positive Cocci Gram Positive Cocci#2 05/30/24 15:25 Blood Blood Culture - Preliminary NO GROWTH AFTER 48 HOURS Narrative: General: patient is alert oriented in no acute distress and responds appropriately to questions. Appears to be in minimal pain. tolerating regular diet. HEENT: NCAT, EOMI, moist mucous membranes, neck supple with full ROM Cardiovascular: RRR Pulmonary: Clear to auscultation bilaterally, nonlabored breathing, symmetric chest rise Abdominal: nonpalpable fundus. non tender Extremities: trace edema, no tenderness or cyanosis noted Skin: Normal turgor, intact, warm. pallor present Neurologic: Negative for sensory or motor deficit Psychiatric: Normal affect, normal thought process, good judgment and insight, no depression or anxious mood appreciated. Assessment and Plan *Assessment and plan (1) Blood loss anemia: Status: Acute Category: Medical Code(s): D50.0 - Iron deficiency anemia secondary to blood loss (chronic) (2) Lesion of cervix: Status: Acute Category: Medical Code(s): N88.9 - Noninflammatory disorder of cervix uteri, unspecified (3) Sepsis: Status: Acute Qualifiers: Sepsis type: sepsis due to unspecified organism Sepsis acute organ dysfunction status: unspecified Qualified Code(s): A41.9 - Sepsis, unspecified organism Category: Medical Code(s): A41.9 - Sepsis, unspecified organism (4) Spontaneous : Status: Acute Category: Medical Code(s): O03.9 - Complete or unspecified spontaneous without complication Plan B and WBC stable this morning. ordered one dose of IV iron for microcytic anemia remains afebrile Continued SCDs at all times while in bed as well as an incentive spirometer transition antibiotic to metronidazole 500mg TID, discussed POC with Dr. Camejo. Will do a 10 day total antibiotic regimen. She recieved 3 days of zosyn, today is D4 of antibiotics starting the PO regimen. She will continue until MondayJun 08. Recommend cont. probiotic until then as well continue following for cultures Patients condition is improving. Anticipate DC home tomorrrow. Continues to requires a multidisciplinary team approach and high medical decision making.
--- NOTE | 2024-06-02 18:31 | PC.NURSE ---
patient doing well this shift, has denied pain, reports she is ready to go home, family stopped by to visit today and that seemed to help her mood, patient ambulating ad jc, tolerating a regular diet w/o complaints, denies difficulty voiding, reports normal BM patterns
--- NOTE | 2024-06-02 19:15 | PC.NURSE ---
report to BETSEY Clemente
[2024-06-02] MEDS: metroNIDAZOLE 500 MG TABLET PO (21:34)
[2024-06-03] VITALS: BP 101/61; PULSE 71; RESP 15; TEMP 36.9; O2SAT 98
[2024-06-03 04:00] VITALS: BP 105/64; PULSE 67; RESP 16; TEMP 36.8; O2SAT 97
[2024-06-03 07:30] LABS: Basophils # 0.1 K/mm3 (0-0.2); Eosinophils # 0.1 K/mm3 (0.0-0.4); Eosinophils % 2.4 % (0.1-12.0); Hematocrit 28.7 % (37.0-47.0); Hemoglobin 9.1 g/dL (12.2-16.2); Lymphocytes # 1.5 K/mm3 (0.7-4.5); Lymphocytes % 25.4 % (10-50); Mean Corpuscular HGB Conc 31.7 g/dL (31.8-35.4); Mean Corpuscular Hemoglobin 24.8 pg (27.0-31.2); Mean Corpuscular Volume 78.2 fl (81-99); Mean Platelet Volume 10.7 fl (7.4-10.4); Monocytes # 0.4 K/mm3 (0.1-1.0); Monocytes % 6.6 % (1.7-9.3); Neutrophils # 3.2 K/mm3 (1.8-7.8); Neutrophils % 55.6 % (37.0-80.0); Platelet Count 184 K/mm3 (142-424); Red Blood Count 3.67 M/mm3 (4.20-5.40); Red Cell Distribution Width 20.3 % (11.5-17.5); White Blood Count 5.8 K/mm3 (4.8-10.8)
[2024-06-03 07:49] LABS: Albumin Level 2.7 g/dl (3.5-5.0); Chloride 106 mmol/L (98-107); Potassium 3.7 mmoL/L (3.5-5.1); Sodium 137 mmol/L (136-145)
[2024-06-03 07:52] LABS: Alanine Aminotransferase 40 U/L (12-78); Albumin/Globulin Ratio 1.2 (1.1-1.8); Alkaline Phosphatase 77 U/L (38-126); Anion Gap 10.7 mEq/L (5-15); Aspartate Amino Transferase 34 U/L (14-36); Bilirubin,Total 0.2 mg/dl (0.2-1.3); Blood Urea Nitrogen 11 mg/dl (7-17); Calcium 8.1 mg/dl (8.4-10.2); Carbon Dioxide 24 mmol/L (22.0-30.0); Creatinine Clearance Estimated 107 mL/min (50-200); Estimated Glomerular Filt Rate 115 ml/min (>60); GFR (African American) 139 ML/MIN (>60); Globulin 2.3 g/dL (1.3-3.2); Glucose 79 mg/dl (74-100)
[2024-06-03] MEDS: LACTOBACILLUS PROBIOTIC COMB CAPSULE 1 CAP PO (08:13)
[2024-06-03] MEDS: metroNIDAZOLE 500 MG TABLET PO (08:14)
[2024-06-03 08:15] VITALS: BP 97/63; PULSE 75; RESP 14; TEMP 36.6; O2SAT 98
[2024-06-03 08:20] VITALS: O2SAT 98
--- NOTE | 2024-06-03 08:30 | PC.NURSE ---
Dr. Ledezma at bedside.
--- NOTE | 2024-06-03 08:59 | P.DS_ITS ---
General Admission date:: 05/30/24 Discharge date: 06/03/24 HPI HPI HPI: Feeling well this morning. Denies pain and bleeding. She has been afebrile for 48 hours. No complaints or concerns. She desires to go home. Hospital Course Hospital Course Hospital Course: Mrs Halley Venegas is a 33 yo at 11w5d who presented to [facility] ED with complaint of fever/chills, leakage of fluid. She reports fevers started Monday evening. She admits she felt achey, fluish. Fevers continued yesterday and today. Yesterday her temperature reached 104 F. She reports watery vaginal discharge/leakage of fluid has kind of been her whole . Discharge/leakage is more with activity and less with rest. She has light i ntermittent bleeding which she reports has always been present for a while. She believes she has a fibroid uterus but is not confirmed. She denies pelvic cramping/pain. History of x 5, home births. 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 She had a visit in January 2024 and a pap smear and cultures were performed. She states pap smear was negative. She denies past medical history. Prior pregnancies and deliveries were uncomplicated. While in the ED her temperature was 101 F. ED physician performed bedside ultrasound and noted scant amniotic fluid as well as tachycardia, 211 bpm. Amnisure was negative. Formal ultrasound was ordered which demonstrated SIUP at 11w4d, FHR 183 bpm, scant fluid. Medicine was consulted to assist with assessment and treatment of sepsis. Patient has received bolus. Will complete sepsis bolus with an additional liter. Worsening anemia this morning, receiving transfusion. Pelvic ultrasound 05/31/24 demonstrated no visible embryo and no detectable cardiac activity. Secondary to concerns for septic decision was made to proceed with surgical management. The night of 05/30/24 she experienced a significant hemoglobin drop and on exam the morning of 05/31/24 she was very pale with dry mucous membranes and decreased capillary refill. The patient also complained of a headache and lethargy. She was consented and received 2 units o f packed red blood cells. She was consented for suction D&C. She underwent Dilation and curettage on 05/31/24. EBL 1200 mL. She received an additional 1 unit PRBCs. Antibiotics were changed to Vanc and Zozyn. AM Hgb 06/02/24 was stable, 8.5. She received IV Venofer 200 mg x 1 dose. Preliminary blood culture demonstrated Bacteroides fragilis.Preliminary blood culture this morning demonstrated no growth at 48 hours. AM Hgb 06/03/24 was 9.1. WBC WNL and stable, 5.8. She was transitioned to metronidazole 500 mg PO TID. She was discharged to home on hospital day #4. She was feeling well. Heart regular rate and rhythm. Lungs clear to auscultation. Vital signs stable. Abdomen soft, nontender, nondistended. Tolerating regular diet. Voiding without difficulty and passing flatus. Ambulating well ad jc. Afebrile x 48 hours. She was prescribed Metronidazole 500 mg PO TID to complete 10 day course. She was given instructions to follow-up in the office in 2 weeks or sooner if needed. Exam Data for Last 24 hours Vital signs and Labs for Last 24 Hours: Temp Pulse Resp BP Pulse Ox O2 Del Method 97.8 F 75 14 97/63 L 98 Room Air 06/03/24 08:15 06/03/24 08:15 06/03/24 08:15 06/03/24 08:15 06/03/24 08:20 06/03/24 08:22 Laboratory Results - last 24 hr 06/02/24 10:00: Vancomycin Trough 11.7 H 06/03/24 07:13: WBC 5.8, RBC 3.67 L, Hgb 9.1 L, Hct 28.7 L, MCV 78.2 L, MCH 24.8 L, MCHC 31.7 L, RDW 20.3 H, Plt Count 184, MPV 10.7 H, Neut % (Auto) 55.6, Lymph % (Auto) 25.4, [place] % (Auto) 6.6, Eos % (Auto) 2.4, Baso % (Auto) 1.0, Neut # (Auto) 3.2, Lymph # (Auto) 1.5, [place] # (Auto) 0.4, Eos # (Auto) 0.1, Baso # (Auto) 0.1, Sodium 137, Potassium 3.7, Chloride 106, Carbon Dioxide 24, Anion Gap 10.7, BUN 11, Creatinine 0.60, Estimated Creat Clear 107, Estimated GFR 115, Est GFR ( Amer) 139, Glucose 79, Calcium 8.1 L, Total Bilirubin 0.2, AST 34, ALT 40, Alkaline Phosphatase 77, Total Protein 5.0 L, Albumin 2.7 L D, Globulin 2.3, Albumin/Globulin Ratio 1.2 I & O for Last 24 hours: Intake & Output 05/31/24 06/01/24 06/02/24 06/03/24 23:59 23:59 23:59 23:59 Intake Total 950 / 950 250 / 250 Output Total 650 / 1150 1100 / 1100 1600 / 1600 0 / 0 Balance 300 / -200 -850 / -850 -1600 / -1600 0 / 0 Weight 112 lb 112 lb 112 lb Microbiology Reports for the Last 24 Hours: Microbiology 05/30/24 14:46 Vaginal Gram Stain - Final 05/30/24 14:46 Vaginal Genital Culture - Preliminary Corynebacterium amycolatum Streptococcus anginosus 05/31/24 10:30 Other Gram Stain - Final 05/31/24 10:30 Other Surgical Biopsy Culture - Preliminary NO GROWTH AFTER 48 HOURS Constitutional Constitutional: no acute distress and cooperative *Routine HEENT Exam Head: Present normocephalic and atraumatic Eye: Absent conjunctivae pink ENT: Present mucous membranes moist *Routine Neck Exam Neck: Present full ROM *Routine Respiratory Exam Respiratory: Present CTA bilaterally and normal respiratory effort *Routine Cardiovascular Exam Cardiovascular: Present RRR *Routine Abdominal Exam Abdominal: Present soft; Absent tenderness or distended *Routine Rectal Exam Patient deferred: visual exam *Routine Exam Patient deferred: external exam *Routine Extremities Exam Extremities: Present full ROM; Absent edema or calf tenderness *Routine Neurological Exam Neurological: Present alert, moving all extremities and normal speech Routine Psychiatric Exam Psychiatric: Present normal affect and cooperative Results Data Completed and Pending Labs on day of discharge: Labs from last 24 hours 06/03/24 06/02/24 07:13 10:00 WBC 5.8 RBC 3.67 L Hgb 9.1 L Hct 28.7 L MCV 78.2 L MCH 24.8 L MCHC 31.7 L RDW 20.3 H Plt Count 184 MPV 10.7 H Neut % (Auto) 55.6 Lymph % (Auto) 25.4 [place] % (Auto) 6.6 Eos % (Auto) 2.4 Baso % (Auto) 1.0 Neut # (Auto) 3.2 Lymph # (Auto) 1.5 [place] # (Auto) 0.4 Eos # (Auto) 0.1 Baso # (Auto) 0.1 Sodium 137 Potassium 3.7 Chloride 106 Carbon Dioxide 24 Anion Gap 10.7 BUN 11 Creatinine 0.60 Estimated Creat Clear 107 Estimated GFR 115 Est GFR ( Amer) 139 Glucose 79 Calcium 8.1 L Total Bilirubin 0.2 AST 34 ALT 40 Alkaline Phosphatase 77 Total Protein 5.0 L Albumin 2.7 L D Globulin 2.3 Albumin/Globulin Ratio 1.2 Vancomycin Trough 11.7 H Preliminary micro results at discharge 05/30/24 14:46 Genital Culture - Preliminary Vaginal Corynebacterium amycolatum Streptococcus anginosus 05/31/24 10:30 Surgical Biopsy Culture - Preliminary Other NO GROWTH AFTER 48 HOURS 05/30/24 15:25 Blood Culture - Preliminary Blood NO GROWTH AFTER 48 HOURS 05/30/24 15:17 Blood Culture - Preliminary Blood DS: Diagnosis Discharge Diagnosis (1) Sepsis: Status: Acute Code(s): A41.9 - Sepsis, unspecified organism Qualifiers: Sepsis acute organ dysfunction status: unspecified Sepsis type: sepsis due to unspecified organism Qualified Code(s): A41.9 - Sepsis, unspecified organism (2) Spontaneous : Status: Acute Code(s): O03.9 - Complete or unspecified spontaneous without complication (3) S/P dilation and curettage: Status: Acute Code(s): Z98.890 - Other specified postprocedural states (4) Blood loss anemia: Status: Acute Code(s): D50.0 - Iron deficiency anemia secondary to blood loss (chronic) (5) Bacterial infection due to Bacteroides fragilis: Status: Acute Code(s): A49.8 - Other bacterial infections of unspecified site Meds Home Medications and Allergies Home Medications ?Medication ?Instructions ?Recorded ?Confirmed ?Type metronidazole 500 mg tablet 500 mg PO TID #28 tabs 06/03/24 Rx New Prescriptions to Start Prescriptions: metronidazole Berta Ledezma Allergies Allergy/AdvReac Type Severity Reaction Status Date / Time No Known Allergies Allergy Verified 05/30/24 11:43 Discharge Plan Disposition Patient Disposition: Home, Self-Care Condition: Good Follow up Plan Follow up with: Berta Ledezma DO [Staff Physician] - 06/17/24 10:00 am Prescriptions/Medication Reconciliation: New metronidazole 500 mg Tablet 500 mg PO TID Qty: 28 0RF Problem Reconciliation Problems Reviewed?: Yes Patient Discharge Instructions ACTIVITY: Limited activity DIET: continue same diet and regular diet Additional Instructions: Discharge: 1. Take 800 mg Ibuprofen every 8 hours as needed for pain. You can also take Tylenol 500-1000 mg every 6 hours or more has needed for pain 2. Nothing in the vagina for 2 weeks - no intercourse, douching or tampons. No tub baths/hot tubs or swimming pools 3. Reasons to call On-Call doctor - fever (greater than 100.4) - heavy vaginal bleeding (soaking through 1 pad in less than 2 hours) - vaginal discharge (malodorous and/or purulent) Berta Ledezma DO [facility] [phone] Patient Instructions: DI for Miscarriage, DI for a Dilation and Curettage, DI for Surgical Site Infection Print Language: Italian Providers Primary Care Provider: Provider,Referral Admit Provider: Berta Ledezma Attending Provider: Berta Ledezma
--- NOTE | 2024-06-03 09:07 | PC.NURSE ---
Dr. Bal at bedside.
--- NOTE | 2024-06-03 16:32 | EXP.ACUTE.PN ---
Subjective *Date: 06/03/24 *Time: 16:32 Interval history: Patient feels much better this morning. No acute events overnight. No nausea or vomiting. Labs looking better. Tolerating p.o. intake. Afebrile. Medical Exam Vital signs and Labs for Last 24 Hours: Vital Signs Temp Pulse Resp BP Pulse Ox O2 Del Method 06/03/24 10:02 Room Air 06/03/24 09:11 Room Air 06/03/24 08:22 Room Air 06/03/24 08:20 98 Room Air 06/03/24 08:15 97.8 F 75 14 97/63 L 98 Room Air 06/03/24 07:28 Room Air 06/03/24 06:00 Room Air 06/03/24 04:00 98.3 F 67 16 105/64 L 97 Room Air 06/03/24 04:00 97 Room Air 06/03/24 04:00 Room Air 06/03/24 02:00 Room Air 06/03/24 00:00 98.4 F 71 15 101/61 L 98 Room Air 06/03/24 00:00 Room Air 06/02/24 22:00 Room Air 06/02/24 21:30 96 Room Air 06/02/24 20:00 98.8 F 70 16 96/59 L 96 Room Air 06/02/24 20:00 Room Air Intake and Output 06/03/24 06/03/24 06/03/24 07:59 15:59 23:59 Output Total 0 / 300 300 / 300 Balance 0 / -300 -300 / -300 Output: Output, Urine Amount 0 / 300 300 / 300 Other: Number of Unmeasured Voids 1 Laboratory Results - last 24 hr 06/03/24 07:13: WBC 5.8, RBC 3.67 L, Hgb 9.1 L, Hct 28.7 L, MCV 78.2 L, MCH 24.8 L, MCHC 31.7 L, RDW 20.3 H, Plt Count 184, MPV 10.7 H, Neut % (Auto) 55.6, Lymph % (Auto) 25.4, [place] % (Auto) 6.6, Eos % (Auto) 2.4, Baso % (Auto) 1.0, Neut # (Auto) 3.2, Lymph # (Auto) 1.5, [place] # (Auto) 0.4, Eos # (Auto) 0.1, Baso # (Auto) 0.1, Sodium 137, Potassium 3.7, Chloride 106, Carbon Dioxide 24, Anion Gap 10.7, BUN 11, Creatinine 0.60, Estimated Creat Clear 107, Estimated GFR 115, Est GFR ( Amer) 139, Glucose 79, Calcium 8.1 L, Magnesium 2.0, Total Bilirubin 0.2, AST 34, ALT 40, Alkaline Phosphatase 77, Total Protein 5.0 L, Albumin 2.7 L D, Globulin 2.3, Albumin/Globulin Ratio 1.2 I & O for Labs for Last 24 Hours: Intake & Output 05/31/24 06/01/24 06/02/24 06/03/24 23:59 23:59 23:59 23:59 Intake Total 950 / 950 250 / 250 Output Total 650 / 1150 1100 / 1100 1600 / 1600 300 / 300 Balance 300 / -200 -850 / -850 -1600 / -1600 -300 / -300 Weight 50.802 kg 50.802 kg 50.802 kg Microbiology Reports for the Last 24 Hours: Microbiology 05/30/24 15:25 Blood Blood Culture - Preliminary NO GROWTH AFTER 4 DAYS 05/31/24 10:30 Other Gram Stain - Final 05/31/24 10:30 Other Surgical Biopsy Culture - Preliminary NO GROWTH AFTER 72 HOURS 05/30/24 15:17 Blood Antimicrobic Susceptibility - Final Not Reportable 05/30/24 15:17 Blood - Final Not Reportable 05/30/24 15:17 Blood - Final Not Reportable 05/30/24 15:17 Blood - Final Not Reportable 05/30/24 15:17 Blood - Final Not Reportable 05/30/24 15:17 Blood - Final Not Reportable 05/30/24 15:17 Blood - Final Not Reportable 05/30/24 15:17 Blood - Final Not Reportable 05/30/24 15:17 Blood - Final Not Reportable 05/30/24 15:17 Blood - Final Not Reportable 05/30/24 15:17 Blood Blood Culture - Final 05/30/24 14:46 Vaginal Gram Stain - Final 05/30/24 14:46 Vaginal Genital Culture - Preliminary Corynebacterium amycolatum Streptococcus anginosus Constitutional: Present no acute distress, average body habitus and cooperative Head: Present atraumatic and normocephalic ENT: Present normal exam Respiratory: Present normal respiratory effort; Absent rhonchi, wheezes or crackles Cardiac: Present Reg Rate and Rhythm GI: Present soft, tenderness (Minimal in lower abdomen) and normal bowel sounds; Absent distention Extremities: Present normal inspection and full ROM Skin: Present intact; Absent erythema Neuro: Present Grossly Intact, alert, awake, oriented x 3 and moves all extremities Assessment and Plan *Assessment and plan (1) Blood loss anemia: Status: Acute Category: Medical Code(s): D50.0 - Iron deficiency anemia secondary to blood loss (chronic) (2) Bacterial infection due to Bacteroides fragilis: Status: Acute Category: Medical Code(s): A49.8 - Other bacterial infections of unspecified site (3) Sepsis: Status: Acute Qualifiers: Sepsis type: sepsis due to unspecified organism Sepsis acute organ dysfunction status: unspecified Qualified Code(s): A41.9 - Sepsis, unspecified organism Category: Medical Code(s): A41.9 - Sepsis, unspecified organism (4) Spontaneous : Status: Acute Category: Medical Code(s): O03.9 - Complete or unspecified spontaneous without complication (5) Vaginal discharge during in first trimester: Status: Acute Category: Medical Code(s): O26.891 - Other specified related conditions, first trimester; N89.8 - Other specified noninflammatory disorders of vagina Plan 33-year-old female G6, P5 who presented with symptoms of sepsis. Hemodynamically stable this morning but still quite pale from anemia. Blood cultures returned positive for B fragilis. Afebrile overnight. Discussed case with gynecology today, tolerated transition to oral antibiotics. Stable to discharge home. Agree with plan as follows. Sepsis Bacteroides bacteremia Spontaneous -Discussed case with gynecology this morning. Transitioned to metronidazole. Tolerated for 24 hours with no fever or change in white count. White count stable at 5.8. Patient feeling better this morning. Agree that she is stable to discharge home. Recommend close follow-up with gynecology for further management. -Blood culture sent to reference lab for sensitivity. Still pending. Urine culture negative. Vaginal culture with corynebacterium and strep species. Clinically better today. -Status post D&C 05/31. had significant blood loss. Acute blood loss anemia: -Status post transfusion 1 unit during admission. Hemoglobin better today at 9.1. Continuing to improve. Status post 1 dose IV iron with Venofer 200 mg. Recommend daily multivitamin with iron. Would benefit from repeat labs in 4 to 6 weeks to monitor for improvement in hemoglobin levels. Thank you for the opportunity to consult on this patient. Agree with discharge plan. Will sign off at this time
--- NOTE | 2024-06-04 13:09 | P.PNANES_ITS ---
[facility] Anesthesia Record Part II Anesthesia Record Part II Discharge Time: 11:32 Destination: Obstetric PACU nurse assessment reviewed?: Yes Patient Condition:: Good Anesthesia Complications:: None Swallowing reflex intact?: Yes Airway Patency: Patent Cyanosis?: No Blood Pressure: 103/51 SaO2: 98 Respiratory Rate: 16 Pulse Rate: 100 Temperature: 98.7 F Mental Status: Alert & Oriented Pain level:: 5 Nausea and/or vomitting:: None Intake, IV Amount: 0 Hydration: Adequate
[2024-06-04 13:10] VITALS: BP 103/51; PULSE 100; RESP 16; TEMP 37.1; O2SAT 98
[2024-06-04 16:10] LABS: Mycoplasma genitalium, NAA Negative (Negative); Neisseria gonorrhoeae, NAA Negative (Negative); Trich vag by NAA Negative (Negative)
== END 2024-06-03 10:08 | disposition home or self-care (01) | DRG 854 ==
LOC: ER 11:07 → OB 16:41
PROVIDERS: Internal Medicine Adolescent Medicine; Obstetrics & Gynecology; Admitting Provider Obstetrics & Gynecology; Emergency Provider Emergency Medicine; Visit Provider Obstetrics & Gynecology
PROC: 10D17ZZ Extraction of Products of Conception, Retained, Via Natural or Artificial Opening (ICD-10-PCS; CPT 58120; principal; 2024-05-31 10:00)
DX: A40.1 Sepsis due to streptococcus, group B (principal); O03.37 Sepsis following incomplete spontaneous abortion; D50.0 Iron deficiency anemia secondary to blood loss (chronic); Z3A.11 11 weeks gestation of pregnancy
CPT/HCPCS: 36415; 36430; 76817; 76856; 80053; 80202; 81001; 83605; 83690; 83735; 84702; 85007; 85014; 85018; 85025; 86592; 86850; 87040; 87070; 87075; 87077; 87086; 87186; 87205; 87210; 87491; 87563; 87591; 87633; 87636; 87661; G0378; J0131; J0290; J1100; J1580; J1756; J1885; J2250; J2270; J2405; J2543; J3010; J3370; J3475; J7050; J7120; P9016